=== PATIENT | female | born 1975 | race Caucasian/White ===

== ENCOUNTER 2018-08-05 15:30 | Emergency (ER) | payer MEDICAID, MEDICARE ==
[2018-08-05] MEDS ORDERED: Iopamidol 755 Mg/ML 100 ML Bottle IVPUSH ONE (17:33)
[2018-08-05] MEDS ORDERED: Sodium Chloride 0.9% 100 ML IV SCH (17:45)
--- NOTE | 2018-08-05 17:49 | EDM.PDOC ---
ED HPI GENERAL MEDICAL PROBLEM - General Chief Complaint: Respiratory Problem Stated Complaint: HIGH BLOOD PRESSURE,NOT SLEEPING Time Seen by Provider: 08/05/18 15:51 Source of Information: Reports: Patient History Limitations: Reports: No Limitations - History of Present Illness INITIAL COMMENTS - FREE TEXT/NARRATIVE: The patient presents with generalized weakness, being tired and shortness of breath. She says this has been going on for a few weeks. She is falling asleep during the day and even when talking. She is also not sleeping good at night. She has no fever, chills or cough. She has no chest pain but she is short of breath. She has no abdominal pain, nausea or vomiting. She has no dysuria or hematuria. She is very tired. She has never been checked for thyroid problems. She does snore at night. Her blood pressure has been higher. Onset: Gradual Duration: Week(s): Severity: Moderate Improves with: Reports: None Worsens with: Reports: None Associated Symptoms: Reports: Shortness of Breath. Denies: Chest Pain, Cough, Fever/Chills, Headaches - Related Data Allergies Allergy/AdvReac Type Severity Reaction Status Date / Time No Known Allergies Allergy Verified 08/05/18 15:51 Home Meds: Home Meds . [No Known Home Meds] 08/05/18 [History] Past Medical History Psychiatric History: Reports: Anxiety, Depression - Past Surgical History GI Surgical History: Reports: Cholecystectomy Social & Family History - Tobacco Use Smoking Status *Q: Never Smoker - Recreational Drug Use Recreational Drug Use: No ED ROS GENERAL - Review of Systems Review Of Systems: See Below Constitutional: Reports: Malaise, Weakness, Fatigue HEENT: Reports: No Symptoms Respiratory: Reports: Shortness of Breath. Denies: Cough Cardiovascular: Reports: No Symptoms Endocrine: Reports: No Symptoms GI/Abdominal: Reports: No Symptoms : Reports: No Symptoms Musculoskeletal: Reports: No Symptoms ED EXAM, GENERAL - Physical Exam Exam: See Below Exam Limited By: No Limitations General Appearance: Alert, No Apparent Distress Ears: Normal External Exam Nose: Normal Inspection Head: Atraumatic, Normocephalic Neck: Normal Inspection Respiratory/Chest: No Respiratory Distress, Lungs Clear, Normal Breath Sounds Cardiovascular: Regular Rate, Rhythm, No Edema, No Murmur GI/Abdominal: Soft, Non-Tender, No Organomegaly, No Mass Back Exam: Normal Inspection Extremities: Normal Inspection EKG INTERPRETATION EKG Date: 08/05/18 Time: 16:45 Rhythm: NSR Rate (Beats/Min): 80 [place]: Normal P-Wave: Present QRS: Normal ST-T: Normal QT: Normal Course - Vital Signs Last Recorded V/S: Last Vital Signs Temp 98.7 F 08/05/18 15:48 Pulse 80 08/05/18 15:48 Resp 16 08/05/18 15:48 BP 141/83 H 08/05/18 15:48 Pulse Ox 97 08/05/18 15:48 - Orders/Labs/Meds Orders: Active Orders 24 hr Category Date Time Status Cardiac Monitoring [RC] . DIRECTED Care 08/05/18 16:14 Active EKG Documentation Completion [RC] STAT Care 08/05/18 16:14 Active Ang Chest [CT] Stat Exams 08/05/18 17:25 Taken CXR [Chest 2V] [CR] Stat Exams 08/05/18 16:15 Taken Sodium Chloride 0.9% [Normal Saline] 100 ml Med 08/05/18 17:45 Active IV ASDIRECTED Medication Orders Sodium Chloride (Normal Saline) 100 mls @ 75 mls/hr IV ASDIRECTED JEOVANY Last Admin: 08/05/18 17:48 Dose: 75 mls/hr Labs: Laboratory Tests 08/05/18 08/05/18 08/05/18 Range/Units 16:30 16:30 16:30 WBC 12.02 H (3.98-10.04) K/mm3 RBC 4.80 (3.98-5.22) M/mm3 Hgb 14.3 (11.2-15.7) gm/L Hct 43.6 (34.1-44.9) % MCV 90.8 (79.4-94.8) fl MCH 29.8 (25.6-32.2) pg MCHC 32.8 (32.2-35.5) g/dl RDW Std Deviation 44.8 (36.4-46.3) fL Plt Count 444 H (182-369) K/mm3 MPV 9.7 (9.4-12.3) fl Neut % (Auto) 72.5 H (34.0-71.1) % Lymph % (Auto) 18.6 L (19.3-51.7) % [place] % (Auto) 5.6 (4.7-12.5) % Eos % (Auto) 3.0 (0.7-5.8) Baso % (Auto) 0.2 (0.1-1.2) % Neut # (Auto) 8.71 H (1.56-6.13) K/mm3 Lymph # (Auto) 2.24 (1.18-3.74) K/mm3 [place] # (Auto) 0.67 H (0.24-0.36) K/mm3 Eos # (Auto) 0.36 (0.04-0.36) K/mm3 Baso # (Auto) 0.03 (0.01-0.08) K/mm3 D-Dimer, Quantitative 0.83 H (0.19-0.50) mg/L Sodium 139 (136-145) mEq/L Potassium 3.9 (3.5-5.1) mEq/L Chloride 105 (98-107) mEq/L Carbon Dioxide 23 (21-32) mEq/L Anion Gap 14.9 (5-15) BUN 9 (7-18) mg/dL Creatinine 0.8 (0.55-1.02) mg/dL Est Cr Clr Drug Dosing 86.36 mL/min Estimated GFR (MDRD) > 60 (>60) mL/min BUN/Creatinine Ratio 11.3 L (14-18) Glucose 94 (74-106) mg/dL Calcium 9.0 (8.5-10.1) mg/dL Total Bilirubin 0.3 (0.2-1.0) mg/dL AST 14 L (15-37) U/L ALT 28 (14-59) U/L Alkaline Phosphatase 86 (46-116) U/L Troponin I < 0.017 (0.00-0.056) ng/mL Total Protein 7.3 (6.4-8.2) g/dl Albumin 3.6 (3.4-5.0) g/dl Globulin 3.7 gm/dL Albumin/Globulin Ratio 1.0 (1-2) TSH 3rd Generation 2.580 (0.358-3.74) uIU/mL HCG, Qual (NEGATIVE) Urine Color (Yellow) Urine Appearance (Clear) Urine pH (5.0-8.0) Ur Specific [place] (1.005-1.030) Urine Protein (Negative) Urine Glucose (UA) (Negative) Urine Ketones (Negative) Urine Occult Blood (Negative) Urine Nitrite (Negative) Urine Bilirubin (Negative) Urine Urobilinogen (0.2-1.0) Ur Leukocyte Esterase (Negative) Urine RBC (0-5) /hpf Urine WBC (0-5) /hpf Ur Squamous Epith Cells (0-5) /hpf Urine Bacteria (FEW) /hpf Urine Mucus (FEW) /hpf 08/05/18 08/05/18 Range/Units 16:30 16:30 WBC (3.98-10.04) K/mm3 RBC (3.98-5.22) M/mm3 Hgb (11.2-15.7) gm/L Hct (34.1-44.9) % MCV (79.4-94.8) fl MCH (25.6-32.2) pg MCHC (32.2-35.5) g/dl RDW Std Deviation (36.4-46.3) fL Plt Count (182-369) K/mm3 MPV (9.4-12.3) fl Neut % (Auto) (34.0-71.1) % Lymph % (Auto) (19.3-51.7) % [place] % (Auto) (4.7-12.5) % Eos % (Auto) (0.7-5.8) Baso % (Auto) (0.1-1.2) % Neut # (Auto) (1.56-6.13) K/mm3 Lymph # (Auto) (1.18-3.74) K/mm3 [place] # (Auto) (0.24-0.36) K/mm3 Eos # (Auto) (0.04-0.36) K/mm3 Baso # (Auto) (0.01-0.08) K/mm3 D-Dimer, Quantitative (0.19-0.50) mg/L Sodium (136-145) mEq/L Potassium (3.5-5.1) mEq/L Chloride (98-107) mEq/L Carbon Dioxide (21-32) mEq/L Anion Gap (5-15) BUN (7-18) mg/dL Creatinine (0.55-1.02) mg/dL Est Cr Clr Drug Dosing mL/min Estimated GFR (MDRD) (>60) mL/min BUN/Creatinine Ratio (14-18) Glucose (74-106) mg/dL Calcium (8.5-10.1) mg/dL Total Bilirubin (0.2-1.0) mg/dL AST (15-37) U/L ALT (14-59) U/L Alkaline Phosphatase (46-116) U/L Troponin I (0.00-0.056) ng/mL Total Protein (6.4-8.2) g/dl Albumin (3.4-5.0) g/dl Globulin gm/dL Albumin/Globulin Ratio (1-2) TSH 3rd Generation (0.358-3.74) uIU/mL HCG, Qual Negative (NEGATIVE) Urine Color Yellow (Yellow) Urine Appearance Slt cloudy H (Clear) Urine pH 6.0 (5.0-8.0) Ur Specific [place] 1.020 (1.005-1.030) Urine Protein Negative (Negative) Urine Glucose (UA) Negative (Negative) Urine Ketones Negative (Negative) Urine Occult Blood 3+ H (Negative) Urine Nitrite Negative (Negative) Urine Bilirubin Negative (Negative) Urine Urobilinogen 0.2 (0.2-1.0) Ur Leukocyte Esterase Negative (Negative) Urine RBC 5-10 H (0-5) /hpf Urine WBC 0-5 (0-5) /hpf Ur Squamous Epith Cells 0-5 (0-5) /hpf Urine Bacteria Few (FEW) /hpf Urine Mucus Few (FEW) /hpf Meds: Medications Generic Name Dose Route Start Last Admin Trade Name Freq PRN Reason Stop Dose Admin Sodium Chloride 100 mls @ 75 mls/hr 08/05/18 17:45 08/05/18 17:48 Normal Saline IV 75 mls/hr ASDIRECTED JEOVANY Administration Discontinued Medications Generic Name Dose Route Start Last Admin Trade Name Freq PRN Reason Stop Dose Admin Iopamidol 100 ml 08/05/18 17:33 08/05/18 17:48 Isovue-370 (76%) IVPUSH 08/05/18 17:34 100 ml ONETIME ONE Administration - Re-Assessments/Exams Free Text/Narrative Re-Assessment/Exam: 08/05/18 17:49 I ordered an EKG, CXR, labs and UA. Her EKG shows a NSR with no acute changes. Her WBC was elevated slightly at 12.02. Her CMP is normal. Her troponin was negative. Her TSH was normal. Her HCG was negative. Her UA shows no UTI. Her D-dimer was elevated. I have ordered a CT of her chest. 08/05/18 18:[address] shows no central acute pulmonary embolus. Examination is technically limited. Possible right breast lesion. Neoplasm should be excluded. Correlation with most recent mammogram is advised. Further interrogation with mammogram and or ultrasound is also advised. Suspected 3cm lesion right hepatic lobe. If there is a primary breast malignancy, a metastatic focus would be primary consideration. Mild enlargement of main pulmonary artery. Pulmonary arterial hypertension could be considered in the appropriate clinical setting. Nonspecific subcentimeter pulmonary nodules in the left upper lobe. I talked to the patient and she was told that area in the breast is nothing to worry about. I feel I still need to order a mammogran and US. Departure - Departure Time of Disposition: 18:50 Disposition: Home, Self-Care 01 Condition: Good Clinical Impression: Breast mass, Shortness of breath Fatigue Qualifiers: Fatigue type: unspecified Qualified Code(s): R53.83 - Other fatigue - Discharge Information *PRESCRIPTION DRUG MONITORING PROGRAM REVIEWED*: Not Applicable *COPY OF PRESCRIPTION DRUG MONITORING REPORT IN PATIENT [place]: Not Applicable Referrals: PCP,None [Primary Care Provider] - Amber Sprague NP [Ordering Only Provider] - 2 Weeks Forms: ED Department Discharge Additional Instructions: I have ordered some studies for the mass in your breast. Our radiology department will call you with a time to come in. Follow up with Amber after. Please return if you are worse. - My Orders Last 24 Hours: My Active Orders 08/05/18 16:14 Cardiac Monitoring [RC] . DIRECTED EKG Documentation Completion [RC] STAT 08/05/18 16:15 CXR [Chest 2V] [CR] Stat 08/05/18 17:25 Ang Chest [CT] Stat 08/05/18 17:45 Sodium Chloride 0.9% [Normal Saline] 100 ml IV ASDIRECTED - Assessment/Plan Last 24 Hours: My Active Orders 08/05/18 16:14 Cardiac Monitoring [RC] . DIRECTED EKG Documentation Completion [RC] STAT 08/05/18 16:15 CXR [Chest 2V] [CR] Stat 08/05/18 17:25 Ang Chest [CT] Stat 08/05/18 17:45 Sodium Chloride 0.9% [Normal Saline] 100 ml IV ASDIRECTED
--- NOTE | 2018-08-08 10:42 | CT ---
CT chest Technique: Multiple axial sections were obtained from above the lung apices inferiorly through the lung bases. Intravenous contrast was utilized. Study performed as a pulmonary angiogram protocol. Comparison: Prior chest x-ray performed earlier on the same day (4:19 PM.) Findings: Very minimal left-sided pleural effusion is seen. Pulmonary arteries are moderately well opacified showing no filling defects to indicate pulmonary embolism. Main pulmonary artery is slightly prominent in size with right and left main pulmonary arteries appearing within normal limits. Questionable breast density is noted on the right side measuring 2.6 cm. Uncertain if this is due to focal fibrous tissue or represents actual breast mass. Mediastinum and hilar regions appear unremarkable. No pericardial thickening is seen. Small hiatal hernia is noted. Surgical clips are seen from prior cholecystectomy. Small subpleural nodule is noted within the left upper chest measuring 6 mm. Second small subpleural nodule is noted within the lingula measuring 3 mm. Minimal nodular pleural thickening is seen along the lateral left chest. Lungs otherwise are clear. Bone window settings show no discrete osseous abnormality. Equivocal low density lesion is seen within the right lobe of the liver measuring approximately 3.0 cm. Impression: 1. Right breast density either representing focal fibrous tissue or actual breast mass. This measures about 2.6 cm in size. Tomosynthesis is recommended to further evaluate. Determination for ultrasound will be based on the tomosynthesis. 2. Questionable lesion within right lobe of the liver measuring 3.0 cm. Ultrasound recommended to further evaluate. 3. Several small subpleural nodules within the left chest, recommend repeat noncontrast chest CT study in 6 months to further evaluate. This follow-up study would occur in January,. 4. Slightly prominent main pulmonary artery which I believe is incidental if patient has no cardiac symptoms. 5. Very small left-sided pleural effusion. 6. No findings of pulmonary embolism. Diagnostic code #9 I agree with preliminary report from [facility], finalized on 08/05/18, 7:13 PM Central Time
--- NOTE | 2018-08-08 11:48 | CR ---
Chest: Two views of the chest were obtained. Comparison: No prior chest x-ray. Heart size and mediastinum are within normal limits. Lungs are clear. Bony structures appear within normal limits for the patient's age. Impression: 1. Nothing acute is seen on two-view chest x-ray. Diagnostic code #1
== END 2018-08-05 19:05 | disposition home or self-care (01) ==
LOC: JD.ED 15:30
DX: N63.10 Unspecified lump in the right breast, unspecified quadrant (principal); R06.02 Shortness of breath; R79.1 Abnormal coagulation profile; R53.83 Other fatigue
CPT/HCPCS: 36415; 71046; 71275; 80053; 81001; 84443; 84484; 84703; 85025; 85379; 93005; 99284; J7030; Q9967

== ENCOUNTER 2019-05-04 10:50 | Emergency (ER) | payer SELFPAY ==
--- NOTE | 2019-05-04 11:39 | EDM.PDOC ---
ED HPI GENERAL MEDICAL PROBLEM - General Chief Complaint: Respiratory Problem Stated Complaint: SENT BY DR AFTER CHEST X-RAY Time Seen by Provider: 05/04/19 11:43 Source of Information: Reports: Patient History Limitations: Reports: No Limitations - History of Present Illness INITIAL COMMENTS - FREE TEXT/NARRATIVE: 44-year-old female presents to the ED at the request of her primary care physician who identified a large left-sided pleural effusion on chest x-ray this morning. Patient has a remote history of breast cancer in the right breast diagnosed in September 2018 for which no therapy was provided because the patient could not make up her mind about having further investigations versus imaging studies done and definitive management such as mastectomy lumpectomy chemotherapy or radiotherapy. Essentially she has done nothing about the diagnosis since 2019. She presents with gradually worsening dyspnea shortness of breath pleuritic chest pain on the left side which finally made her go to the doctor today. She is dyspneic on minimal exertion. She feels full in her left upper hemiabdomen. Denies really any cough or sputum production. X-ray sent over from the clinic shows at least 50% left-sided pleural effusion. Is no doubt going to be malignant secondary to breast cancer. Reports no weight loss but her appetite is not the best. Does feel like her abdomen is slightly bloated as well. Onset: Gradual, Unknown/Unsure (Believes that she is developed gradually shortness of breath over the last 6 to 8 weeks) Duration: Week(s):, Chronic, Getting Worse Location: Reports: Chest (Shortness of breath on exertion and left-sided chest pain discomfort some pleuritic component to the pain) Quality: Reports: Other Severity: Moderate ([place] left-sided chest pain) Improves with: Reports: Rest Worsens with: Reports: Movement (Worsens with exertion or walking.) Context: Denies: Activity, Exercise, Lifting, Sick Contact, Trauma, Other Associated Symptoms: Reports: Loss of Appetite, Malaise, Shortness of Breath, Weakness. Denies: No Other Symptoms, Confusion, Chest Pain, Cough, cough w sputum, Diaphoresis, Fever/Chills, Headaches, Rash, Seizure, Syncope Treatments STRAP CUTTER: Reports: Other (see below) (Noticed that she is not as strong as she used to be.) Headache Pain Score (Numeric/FACES): 5 - Related Data Allergies Allergy/AdvReac Type Severity Reaction Status Date / Time No Known Allergies Allergy Verified 05/04/19 11:06 Home Meds: Home Meds . [No Known Home Meds] 08/05/18 [History] Past Medical History SPECIAL PROJECTS COORDINATOR History: Reports: Other (See Below) Other SPECIAL PROJECTS COORDINATOR History: tubal ligation Psychiatric History: Reports: Anxiety, Depression Oncologic (Cancer) History: Reports: Breast (Noticed with left breast cancer by biopsy by Dr. Rodas in September 2018. She never followed up for MRI of the breast or any other investigations with oncology at [facility].) - Past Surgical History GI Surgical History: Reports: Cholecystectomy Social & Family History - Tobacco Use Smoking Status *Q: Former Smoker Used Tobacco, but Quit: Yes Month/Year Tobacco Last Used: 2009 - Caffeine Use Caffeine Use: Reports: None - Recreational Drug Use Recreational Drug Use: No - Living Situation & Occupation Living situation: Reports: Occupation: Employed ED ROS GENERAL - Review of Systems Review Of Systems: See Below Constitutional: Reports: Malaise, Weakness, Fatigue, Decreased Appetite. Denies : Fever, Chills HEENT: Reports: No Symptoms Respiratory: Reports: Shortness of Breath, Pleuritic Chest Pain. Denies: Wheezing, Cough (Left-sided pleuritic chest pain at times), Sputum, Hemoptysis Cardiovascular: Reports: Chest Pain, Dyspnea on Exertion. Denies: Blood Pressure Problem (Some left-sided chest pressure discomfort at times), Claudication, Edema, Lightheadedness, Orthopnea Endocrine: Reports: Fatigue GI/Abdominal: Reports: Abdominal Pain (Pressure in the epigastrium and left upper quadrant of the abdomen at times. Feels early satiety.), Constipation ( Takes herbal laxatives) : Reports: No Symptoms, Other (In the case that she is menstruating fairly regularly but that the cramps are getting worse as she is getting older.) Musculoskeletal: Reports: Back Pain (Pain in her thoracic back.) Skin: Reports: No Symptoms Neurological: Reports: No Symptoms Psychiatric: Reports: No Symptoms Hematologic/Lymphatic: Reports: No Symptoms Immunologic: Reports: No Symptoms ED EXAM, GENERAL - Physical Exam Exam: See Below Exam Limited By: No Limitations General Appearance: Alert, WD/WN, No Apparent Distress, Other (Essential temperature 36.2 pulse is 84 and sinus respiratory is 20 with O2 sats of only 93 % on room air BP is 109/80) Eye Exam: Bilateral Eye: Normal Inspection Ears: Normal TMs Throat/Mouth: Normal Inspection, Normal Lips, Normal Teeth, Normal Oropharynx Head: Normocephalic, Sinus Tenderness Neck: Normal Inspection, Supple, Non-Tender, Full Range of Motion. No: Lymphadenopathy (L), Lymphadenopathy (R) Respiratory/Chest: Chest Non-Tender, Respiratory Distress, Decreased Breath Sounds (No tachypnea is to percussion to the lower 50% of left lung sotelo with no air entry to the lower 50%. Normal air entry to the right lung field), Other (Clinically has a large left-sided pleural effusion). No: Lungs Clear, Normal Breath Sounds Cardiovascular: Normal Peripheral Pulses, Regular Rate, Rhythm, No Edema, No Gallop, No Murmur, No Rub Peripheral Pulses: 3+: Posterior Tibial (L), Posterior Tibial (R), Dorsalis Pedis (L), Dorsalis Pedis (R) GI/Abdominal: Normal Bowel Sounds, Soft, Non-Tender, No Organomegaly, No Abnormal Bruit, No Mass, Pelvis Stable, Other (Lars obese. She is missing her gallbladder) Back Exam: Normal Inspection, Full Range of Motion, Other (Not identify any point tenderness of any of the spinous processes of her thoracic spine). No: CVA Tenderness (L), CVA Tenderness (R) Extremities: Normal Inspection, Normal Range of Motion, Non-Tender, No Pedal Edema Neurological: Alert, Oriented, Normal Cognition, Normal Gait Psychiatric: Normal Affect, Normal Mood Skin Exam: Warm, Dry, Intact, Normal Color, No Rash Lymphatic: Other (Has a firm indurated mass in the upper outer quadrant of her right breast measuring 5 cm x 3 cm and it is still mobile. It is mildly tender. Apparently this was diagnosed as a breast cancer by biopsy in September 2018. She does appear to have anterior axillary adenopathy as well on the left side. No supraclavicular adenopathy noted) EKG INTERPRETATION EKG Date: 05/04/19 Time: 11:51 Rhythm: NSR Rate (Beats/Min): 84 [place]: Normal P-Wave: Present QRS: Normal ST-T: Normal QT: Normal EKG Interpretation Comments: Essentially normal ECG Course - Vital Signs Last Recorded V/S: Last Vital Signs Temp 36.2 C 05/04/19 11:03 Pulse 84 05/04/19 11:03 Resp 20 05/04/19 11:03 BP 109/80 05/04/19 11:03 Pulse Ox 93 L 05/04/19 11:03 - Orders/Labs/Meds Orders: Active Orders 24 hr Category Date Time Status EKG Documentation Completion [RC] STAT Care 05/04/19 11:46 Active Dextrose 5%-0.9% NaCl [Dextrose 5%-Normal Saline] 1,000 Med 05/04/19 12:00 Active ml IV ASDIRECTED Sodium Chloride 0.9% [Saline Flush] Med 05/04/19 12:29 Active 10 ml FLUSH ONETIME PRN Medication Orders Dextrose/Sodium Chloride (Dextrose 5%-Normal Saline) 1,000 mls @ 125 mls/hr IV ASDIRECTED JEOVANY Last Admin: 05/04/19 12:22 Dose: 125 mls/hr Sodium Chloride (Saline Flush) 10 ml FLUSH ONETIME PRN PRN Reason: IV FLUSH Last Admin: 05/04/19 12:50 Dose: 10 ml Labs: Laboratory Tests 05/04/19 05/04/19 05/04/19 Range/Units 12:25 12:25 12:25 WBC 7.28 (3.98-10.04) K/mm3 RBC 4.84 (3.98-5.22) M/mm3 Hgb 14.1 (11.2-15.7) gm/dl Hct 43.1 (34.1-44.9) % MCV 89.0 (79.4-94.8) fl MCH 29.1 (25.6-32.2) pg MCHC 32.7 (32.2-35.5) g/dl RDW Std Deviation 44.7 (36.4-46.3) fL Plt Count 349 D (182-369) K/mm3 MPV 8.8 L (9.4-12.3) fl Neut % (Auto) 44.2 (34.0-71.1) % Lymph % (Auto) 42.2 (19.3-51.7) % [place] % (Auto) 9.9 (4.7-12.5) % Eos % (Auto) 2.6 (0.7-5.8) Baso % (Auto) 0.8 (0.1-1.2) % Neut # (Auto) 3.22 (1.56-6.13) K/mm3 Lymph # (Auto) 3.07 (1.18-3.74) K/mm3 [place] # (Auto) 0.72 H (0.24-0.36) K/mm3 Eos # (Auto) 0.19 (0.04-0.36) K/mm3 Baso # (Auto) 0.06 (0.01-0.08) K/mm3 PT 10.3 (9.7-12.0) SECONDS INR 0.94 APTT 26 (22-31) SECONDS Sodium 140 (136-145) mEq/L Potassium 4.1 (3.5-5.1) mEq/L Chloride 105 (98-107) mEq/L Carbon Dioxide 27 (21-32) mEq/L Anion Gap 12.1 (5-15) BUN 15 (7-18) mg/dL Creatinine 0.7 (0.55-1.02) mg/dL Est Cr Clr Drug Dosing 97.65 mL/min Estimated GFR (MDRD) > 60 (>60) mL/min BUN/Creatinine Ratio 21.4 H (14-18) Glucose 104 (74-106) mg/dL Calcium 8.8 (8.5-10.1) mg/dL Magnesium 2.2 (1.8-2.4) mg/dl Total Bilirubin 0.6 (0.2-1.0) mg/dL AST 39 H (15-37) U/L ALT 89 H (14-59) U/L Alkaline Phosphatase 88 (46-116) U/L C-Reactive Protein 1.3 H* (<1.0) mg/dL NT-Pro-B Natriuret Pep (0-125) pg/mL Total Protein 7.0 (6.4-8.2) g/dl Albumin 3.6 (3.4-5.0) g/dl Globulin 3.4 gm/dL Albumin/Globulin Ratio 1.1 (1-2) Urine Color (Yellow) Urine Appearance (Clear) Urine pH (5.0-8.0) Ur Specific [place] (1.005-1.030) Urine Protein (Negative) Urine Glucose (UA) (Negative) Urine Ketones (Negative) Urine Occult Blood (Negative) Urine Nitrite (Negative) Urine Bilirubin (Negative) Urine Urobilinogen (0.2-1.0) Ur Leukocyte Esterase (Negative) Urine RBC (0-5) /hpf Urine WBC (0-5) /hpf Ur Squamous Epith Cells (0-5) /hpf Urine Bacteria (FEW) /hpf Urine Mucus (FEW) /hpf 05/04/19 05/04/19 Range/Units 12:25 13:01 WBC (3.98-10.04) K/mm3 RBC (3.98-5.22) M/mm3 Hgb (11.2-15.7) gm/dl Hct (34.1-44.9) % MCV (79.4-94.8) fl MCH (25.6-32.2) pg MCHC (32.2-35.5) g/dl RDW Std Deviation (36.4-46.3) fL Plt Count (182-369) K/mm3 MPV (9.4-12.3) fl Neut % (Auto) (34.0-71.1) % Lymph % (Auto) (19.3-51.7) % [place] % (Auto) (4.7-12.5) % Eos % (Auto) (0.7-5.8) Baso % (Auto) (0.1-1.2) % Neut # (Auto) (1.56-6.13) K/mm3 Lymph # (Auto) (1.18-3.74) K/mm3 [place] # (Auto) (0.24-0.36) K/mm3 Eos # (Auto) (0.04-0.36) K/mm3 Baso # (Auto) (0.01-0.08) K/mm3 PT (9.7-12.0) SECONDS INR APTT (22-31) SECONDS Sodium (136-145) mEq/L Potassium (3.5-5.1) mEq/L Chloride (98-107) mEq/L Carbon Dioxide (21-32) mEq/L Anion Gap (5-15) BUN (7-18) mg/dL Creatinine (0.55-1.02) mg/dL Est Cr Clr Drug Dosing mL/min Estimated GFR (MDRD) (>60) mL/min BUN/Creatinine Ratio (14-18) Glucose (74-106) mg/dL Calcium (8.5-10.1) mg/dL Magnesium (1.8-2.4) mg/dl Total Bilirubin (0.2-1.0) mg/dL AST (15-37) U/L ALT (14-59) U/L Alkaline Phosphatase (46-116) U/L C-Reactive Protein (<1.0) mg/dL NT-Pro-B Natriuret Pep 34 (0-125) pg/mL Total Protein (6.4-8.2) g/dl Albumin (3.4-5.0) g/dl Globulin gm/dL Albumin/Globulin Ratio (1-2) Urine Color Yellow (Yellow) Urine Appearance Clear (Clear) Urine pH 6.0 (5.0-8.0) Ur Specific [place] 1.025 (1.005-1.030) Urine Protein Negative (Negative) Urine Glucose (UA) Negative (Negative) Urine Ketones Negative (Negative) Urine Occult Blood Negative (Negative) Urine Nitrite Negative (Negative) Urine Bilirubin Negative (Negative) Urine Urobilinogen 0.2 (0.2-1.0) Ur Leukocyte Esterase Negative (Negative) Urine RBC 0-5 (0-5) /hpf Urine WBC 0-5 (0-5) /hpf Ur Squamous Epith Cells 0-5 (0-5) /hpf Urine Bacteria Moderate H (FEW) /hpf Urine Mucus Few (FEW) /hpf Meds: Medications Generic Name Dose Route Start Last Admin Trade Name Shilpa PRN Reason Stop Dose Admin Dextrose/Sodium Chloride 1,000 mls @ 125 mls/hr 05/04/19 12:00 05/04/19 12:22 Dextrose 5%-Normal Saline IV 125 mls/hr ASDIRECTED JEOVANY Administration Sodium Chloride 10 ml 05/04/19 12:29 05/04/19 12:50 Saline Flush FLUSH 10 ml ONETIME PRN Administration IV FLUSH Discontinued Medications Generic Name Dose Route Start Last Admin Trade Name Freq PRN Reason Stop Dose Admin Iopamidol 25 ml 05/04/19 12:29 05/04/19 12:49 Isovue-300 (61%) IVPUSH 05/04/19 12:30 50 ml ONETIME ONE Administration Iopamidol 100 ml 05/04/19 12:29 05/04/19 12:49 Isovue-300 (61%) IVPUSH 05/04/19 12:30 100 ml ONETIME ONE Administration - Radiology Interpretation Free Text/Narrative:: 44-year-old female presents to the ED at the request of her primary care physician who seen her for the first time this morning. She was complaining of gradually worsening dyspnea over period of 6 weeks. She has a history of left- sided breast cancer diagnosed 2019 by biopsy for which she did not pursue any further investigations or treatment. It is unclear why this occurred. At any rate she was identified to have a very large left-sided pleural effusion this morning on the left side taking up 50% of the lung field. This is the reason for dyspnea and left-sided chest pain and is no related to the underlying breast cancer with likely metastatic spread to the pleura. I will have routine labs carried out as they only did a CBC at the clinic. If her coags are okay and liver function are okay she will have CT of the chest abdomen pelvis to look for metastatic disease in her liver. Will be done for IV contrast only . - Re-Assessments/Exams Free Text/Narrative Re-Assessment/Exam: 05/04/19 13:30 CT of the chest abdomen pelvis with IV contrast has been completed. It does reveal a definitive mass which is palpable within the right breast. In the chest there is a very large left-sided pleural effusion I suspect there are multiple mediastinal lymph nodes as well. The right lung is clear. In the abdomen there is a cystic lesion in the mid body of the right lobe of the liver but there appears to be an abnormality in the inferior lobe of the right liver which is of unclear etiology. Adrenal glands are within normal limits. Pancreas appears normal spleen appears normal there is scattered amount of stool throughout the colon. No free fluid in the pelvis. I will await the radiologist opinion in this regard.Count is 7.28 with 44.2% neutrophils and 42% lymphocytes. A mild right shift hemoglobin is 14.1 with hematocrit of 43.1. MCV is normal platelet count is 349,000 PT is 10.3 with an INR of 0.94 and a PTT of 26. Sodium is 140 with a potassium of 4.1. Chloride is 105 with a bicarb of 27. Anion gap is 12.1 with a BUN of 15. Creatinine is 0.7 GFR remains greater than 60. Glucose is 104 with a calcium of 8.8 magnesium is 2.2 with a bilirubin of 0.6. AST is slightly elevated at 39 and ALT is slightly elevated at 89. Alk phosphatase is 88. C-reactive protein is 1.3 BNP is 34 total protein 7.0 with an albumin fraction of 3.6. Urinalysis shows only moderate bacteria with no signs of pyuria. 05/04/19 14:39 CT of the chest reveals a focal nodule within the right breast which is showing some degrees of spiculation suggesting malignancy. Size is also slightly increased in size by about 5 to 6 mm. There is an enlarged left lobe of the thyroid gland containing a nodule. This is most likely present on prior exam but shows artifact which obscures portions of it. There is a very large left-sided pleural effusion which is quite evident. Small portion of the upper lung remains aerated. Small nodule is noted adjacent to the pleura within the right lung base. This is identified on prior study and is believed to be stable although interval changes not sufficient to confirm a benign lesion. Additional nodules noted within the right upper lung which is not seen on previous exam and measures about 3 mm. Low-density lesion noted within the inferior right lobe of the liver which is vaguely seen on prior study these finding measures approximately 3.5 cm in size there is a second lesion noted more superiorly within the right lobe of the liver which also appears solid measuring 1.3 cm in size and again is an interval change from previous exam. Suggest that she likely has metastatic disease above and below the liver. Spleen appears to be within normal limits adrenal glands show no nodules kidneys show symmetric contrast enhancement without hydronephrosis or mass pancreas is seen within normal limits surgical clips are seen from. Prior cholecystectomy aorta shows no aneurysm. No retroperitoneal adenopathy or mesenteric abnormalities are seen. No pelvic mass or adenopathy is noted. Cyst is noted within the right ovary measuring 3.9 cm. No additional pelvic abnormalities are noted. Appendix is seen and is normal in size. No free fluid or inflammatory changes seen. There is a nodule noted off the anterior spleen believed to represent an accessory splenic tissue. Bone window settings were reviewed which shows severe disc degeneration at L5-S1 level with mild spondylolisthesis. Severe degenerative apophyseal changes seen at the same level. Bone lesion is noted within the inferior acetabulum on the left side this could represent a bony metastatic lesion measuring 2.6 cm in size a second lytic lesion is seen within the right iliac wing measuring 2.0 cm which is likely due to additional bone metastatic disease several vague small areas are scattered within the lumbar spine possibly due to very early metastatic disease. 05/04/19 15:00: After speaking with the patient's brother and herself to help her make decisions she is made a decision to travel to [place] where she could have the large pleural effusion tapped and then also seek oncology opinion and opt for a treatment or not. Therefore discuss her case with the on-call hospitalist at [facility] in [place]. She would travel to that institution by ground ambulance. 05/04/19 15:44 I spoke with the 1 call nurse at [facility] and [facility] and Dr. Walsh hospitalist on-call and he is accepted care of this patient. Be transferred to that facility per ground ambulance. Departure - Departure Time of Disposition: 15:46 Disposition: DC/Tfer to [facility] Condition: Fair Clinical Impression: Primary cancer of right breast with metastasis to other site, Widespread metastatic malignant neoplastic disease, Shortness of breath - Discharge Information *PRESCRIPTION DRUG MONITORING PROGRAM REVIEWED*: Not Applicable *COPY OF PRESCRIPTION DRUG MONITORING REPORT IN PATIENT ROYER: Not Applicable Referrals: Amber Sprague NP [Primary Care Provider] - Forms: ED Department Discharge Additional Instructions: She will be transferred to [facility] in [place] for 2 reasons. 1 she will require thoracostomy drainage of her large left-sided pleural effusion which is most likely metastatic in origin. She also requires oncology consultation for primary right-sided breast carcinoma with widespread metastatic disease on CT. Sepsis Event Note - Evaluation Sepsis Screening Result: No Definite Risk - Focused Exam Vital Signs: Vital Signs Temp Pulse Resp BP Pulse Ox 05/04/19 11:03 36.2 C 84 20 109/80 93 L Date Exam was Performed: 05/04/19 Time Exam was Performed: 16:15 - My Orders Last 24 Hours: My Active Orders 05/04/19 11:46 EKG Documentation Completion [RC] STAT 05/04/19 12:00 Dextrose 5%-0.9% NaCl [Dextrose 5%-Normal Saline] 1,000 ml IV ASDIRECTED 05/04/19 12:29 Sodium Chloride 0.9% [Saline Flush] 10 ml FLUSH ONETIME PRN - Assessment/Plan Last 24 Hours: My Active Orders 05/04/19 11:46 EKG Documentation Completion [RC] STAT 05/04/19 12:00 Dextrose 5%-0.9% NaCl [Dextrose 5%-Normal Saline] 1,000 ml IV ASDIRECTED 05/04/19 12:29 Sodium Chloride 0.9% [Saline Flush] 10 ml FLUSH ONETIME PRN
[2019-05-04] MEDS ORDERED: Dextrose 5%-0.9% NaCl 1,000 ML IV SCH (12:00)
[2019-05-04] MEDS ORDERED: Iopamidol 612 MG/ML 100 ML Bottle IVPUSH ONE (12:29)
[2019-05-04] MEDS ORDERED: Sodium Chloride 0.9% 10 ML Syringe FLUSH PRN (12:29)
[2019-05-04] MEDS ORDERED: Iopamidol 612 MG/ML 50 ML SDV IVPUSH ONE (12:29)
--- NOTE | 2019-05-04 13:43 | CT ---
CT chest Technique: Multiple axial sections were obtained from above the lung apices inferiorly through the lung bases. Intravenous contrast was utilized. Comparison: Previous chest CT of 08/05/18. Findings: Focal nodule is noted within the right breast. This is showing some increasing spiculations from prior exam. Size is also slightly increasing in size by about 5-6 mm. These findings make malignancy most likely. Enlarged left lobe of the thyroid gland containing a nodule is seen. This is most likely present on prior exam but shows artifact which obscures portions of it. Large left-sided pleural effusion is seen causing left lung atelectasis. Small portion of the upper lung remains aerated. Small nodule is noted adjacent to the pleura within the right lung base. This is identified on prior study and is believed to be stable although interval change is not sufficient to confirm benign lesion. Additional nodule is noted within the right upper lung which is not seen on previous exam and measures about 3 mm. Low density lesion noted within the inferior right lobe of the liver which is vaguely seen on prior study. This finding measures approximately 3.5 cm. Second lesion noted more superiorly within the right lobe of the liver which also appears solid measuring 1.3 cm in size and is an interval change from previous exam. Impression: 1. Increasing size of right breast mass with increasing spiculation highly suspicious for malignancy. 2. Large left-sided pleural effusion causing significant atelectasis of the left lung. Given the breast abnormality this pleural effusion is most likely malignant. 3. New 3 mm nodule within the right upper lung. Difficult to exclude early metastatic lesion. Small pleural-based nodule more inferiorly within the right lung base which appears stable from prior chest CT but interval change does not confirm a benign nodule. 4. Two liver lesions. More inferior liver lesion is vaguely seen on prior study but more noticeable currently most likely due to worsening liver metastasis. New lesion is seen within the upper right lobe of the liver likely representing liver metastasis. 5. Enlarged left lobe of the thyroid gland showing a nodule. Ultrasound could be obtained to further evaluate. Diagnostic code #9 CT abdomen and pelvis Technique: Multiple axial sections were obtained from above the dome of the diaphragm inferiorly through the pubic symphysis. Intravenous contrast was utilized. No oral contrast has been given. Findings: Two liver lesions are again noted as described on above chest CT. Spleen appears within normal limits. Adrenal glands show no nodule. Kidneys show symmetric contrast enhancement without hydronephrosis or mass. Pancreas is within normal limits. Surgical clips are seen from prior cholecystectomy. Aorta shows no aneurysm. No retroperitoneal adenopathy or mesenteric abnormalities are seen. No pelvic mass or adenopathy is seen. Cyst is noted within the right ovary measuring 3.9 cm. No additional pelvic abnormality is seen. Appendix is seen and is normal in size. No free fluid or inflammatory change is seen. There is a nodule noted off the anterior spleen believed to represent accessory splenic tissue. Bone window settings were reviewed which shows severe disc space narrowing at L5-S1 with mild spondylolisthesis. Severe degenerative apophyseal change is seen at the same level. Bone lesion is noted within the inferior acetabulum on the left side. This could represent a bone metastasis measuring about 2.6 cm in size. Second lytic lesion seen within the right iliac wing measuring 2.0 cm which is likely due to additional bone metastasis. Several vague small areas are scattered within the lumbar spine possibly due to very early metastasis. Impression: 1. Two liver lesions are again noted suspicious for liver metastasis. 2. Two bone lesions within the pelvis suspicious for bone metastasis. Several small areas of lucency scattered within the lumbar spine suspicious but not confirmatory for bone metastasis. 3. 3.9 cm cyst within the right ovary. 4. No additional abnormality is appreciated. Diagnostic code #9 This report was dictated in MDT
== END 2019-05-04 16:20 ==
LOC: JD.ED 10:50
DX: R06.02 Shortness of breath (principal); C50.411 Malignant neoplasm of upper-outer quadrant of right female breast; C79.89 Secondary malignant neoplasm of other specified sites; Z87.891 Personal history of nicotine dependence
CPT/HCPCS: 36415; 71260; 74177; 80053; 81001; 83735; 83880; 85025; 85610; 85730; 86140; 93005; 96360; 96361; 99285; J7042; Q9967; 93010

== ENCOUNTER 2020-02-17 05:11 | Emergency (ER) | payer MEDICAID, SELFPAY ==
[2020-02-17] MEDS ORDERED: HYDROmorphone 1 MG/ML Syringe IVPUSH ONE (05:57)
[2020-02-17] MEDS ORDERED: Ondansetron 4 MG/2 ML SDV IVPUSH ONE (05:57)
[2020-02-17] MEDS ORDERED: Sodium Chloride 0.9% 1,000 ML IV SCH (06:00)
--- NOTE | 2020-02-17 06:01 | EDM.PDOC ---
<Frandy Sanders - Last Filed: 02/17/20 07:31> ED HPI GENERAL MEDICAL PROBLEM - General Chief Complaint: Abdominal Pain Stated Complaint: LEFT ABDOMINAL SIDE EXTREME PAIN Time Seen by Provider: 02/17/20 05:32 Source of Information: Reports: Patient History Limitations: Reports: No Limitations - History of Present Illness INITIAL COMMENTS - FREE TEXT/NARRATIVE: Ms. Antonio is a 44-year-old woman with a past medical history significant for stage IV breast cancer, status post chemotherapy with her most recent dose on September 26 of this year, who now presents to the ED stating that she has had far left abdominal pain, sharp and stabbing in character, since around 23:00 last night. Her pain is made worse if she lies in either the left or right decubitus position, and she is most comfortable if lying supine. No associated fever, dyspnea, nausea, vomiting, constipation, or diarrhea. The patient states that she has had similar symptoms countless times over the past several months, but she is very vague and not able to define how long this has been going on. She states that it started as she was receiving chemotherapy, but also after she finished receiving chemotherapy. He states that her pain is almost always resolved after drinking water, however, drinking water today did not help, wherefore he came to the ED for evaluation. The patient last ate around 19:00 last night. Here in the ED, the patient is found to be hemodynamically stable, afebrile, saturating 97% on room air. Other than her recurrent for left-sided abdominal pain, the patient denies having a recent fever, chills, sore throat, ear pain, nasal or sinus congestion, cough, dyspnea, chest pain, palpitations, nausea, vomiting, constipation, diarrhea, urinary symptoms, recent weight gain or weight loss, recent bloody bowel movements or black bowel movements, recent joint aches, headaches, or rashes. The patient's PCP is Amber Sprague NP. Her Oncologist is Dr. Angelito Parada. Left Middle Abdomen Pain Score (Numeric/FACES): 8 - Related Data Allergies Allergy/AdvReac Type Severity Reaction Status Date / Time No Known Allergies Allergy Verified 02/17/20 05:29 Home Meds: Home Meds Doxycycline [Vibra-Tabs] 100 mg PO Q12HR #20 tab 02/17/20 [Rx] dexAMETHasone [Dexamethasone] 4 mg PO ASDIRECTED #15 tablet 02/17/20 [Rx] oxyCODONE HCl/Acetaminophen [Percocet 5-325 mg Tablet] 1 - 2 each PO Q4H PRN #20 tablet 02/17/20 [Rx] Past Medical History Psychiatric History: Reports: Anxiety (untreated), Depression (untreated) Endocrine/Metabolic History: Reports: Obesity/BMI 30+ Oncologic (Cancer) History: Reports: Breast (right, Stage IV, s/p CTx) - Past Surgical History Respiratory Surgical History: Reports: Pleurodesis (left) GI Surgical History: Reports: Cholecystectomy (around 2016) Female Surgical History: Reports: Tubal Ligation Musculoskeletal Surgical History: Reports: ORIF (right ankle) Social & Family History - Tobacco Use Tobacco Use Status *Q: Former Tobacco User Years of Tobacco use: 24 Packs/Tins Daily: 1 Month/Year Tobacco Last Used: Quit Feb 2009 - Caffeine Use Caffeine Use: Reports: None - Alcohol Use Alcohol Use History: Yes Alcohol Use Frequency: Rarely - Recreational Drug Use Recreational Drug Use: Yes Drug Use in Last 12 Months: No Recreational Drug Type: Reports: Marijuana/Hashish (last smoked "years" ago) - Living Situation & Occupation Living situation: Reports: , with Family (13 yr old son) Occupation: Unemployed ED ROS GENERAL - Review of Systems Review Of Systems: Comprehensive ROS is negative, except as noted in HPI. ED EXAM, GENERAL - Physical Exam Exam: See Below Exam Limited By: No Limitations General Appearance: Alert, WD/WN, Mild Distress (appears uncomfortable) Eye Exam: Bilateral Eye: EOMI, Normal Inspection Ears: Normal External Exam, Hearing Grossly Normal Nose: Normal Inspection Throat/Mouth: Normal Inspection, Normal Lips, Normal Voice, No Airway Compromise Head: Atraumatic, Normocephalic Neck: Normal Inspection, Full Range of Motion Respiratory/Chest: No Respiratory Distress, Lungs Clear, Normal Breath Sounds, No Accessory Muscle Use Cardiovascular: Normal Peripheral Pulses, Regular Rate, Rhythm, No Gallop, No JVD, No Murmur, No Rub Peripheral Pulses: 3+: Radial (L), Radial (R) GI/Abdominal: Normal Bowel Sounds, Soft, No Organomegaly, No Distention, No Abnormal Bruit, No Mass, Tender (mild, to the far left abdomen, with the remainder of the abdomen essentially nontender) Back Exam: Normal Inspection, Full Range of Motion. No: CVA Tenderness (L), CVA Tenderness (R) Extremities: Normal Inspection, Normal Range of Motion, Normal Capillary Refill Neurological: Alert, Oriented, Normal Cognition, No Motor/Sensory Deficits Psychiatric: Normal Affect Skin Exam: Warm, Dry, Intact, Normal Color, No Rash Course - Re-Assessments/Exams Free Text/Narrative Re-Assessment/Exam: 02/17/20 05:58 The cause of the patient's pain is not immediately clear. She has severe pain to her far left abdomen, however, she is not exactly tender in that area, nor is she tender to her left upper quadrant, and she has no left CVA tenderness. Her pain could be musculoskeletal in etiology, or referred from a pleural effusion. It could also be an unusual presentation of a left sided ureterolith. I think the best way to get to the bottom of it is with a CT scan, therefore I have ordered some blood work and a CT of the abdomen and pelvis with oral and IV contrast. In the meantime, the patient will be treated with IV Dilaudid, IV Zofran, and IV fluid. 02/17/20 07:31 The patient's CBC is unremarkable. Her CMP and magnesium level are still pending. She has not yet gone to CT scan. Case discussed with Dr. Montana, and care of the patient turned over to him at this time, for change of shift. Departure - Departure Disposition: Home, Self-Care 01 Clinical Impression: Pleural effusion in other conditions classified elsewhere, Primary cancer of right breast with metastasis to other site - Discharge Information Prescriptions: dexAMETHasone [Dexamethasone] 4 mg PO ASDIRECTED #15 tablet oxyCODONE HCl/Acetaminophen [Percocet 5-325 mg Tablet] 1 - 2 each PO Q4H PRN #20 tablet PRN Reason: pain relief. Doxycycline [Vibra-Tabs] 100 mg PO Q12HR #20 tab Referrals: Amber Sprague [facility] [Primary Care Provider] - Forms: ED Department Discharge Additional Instructions: Evaluation in the emergency room this morning in regards to development of left lateral lower chest pain last evening. This has a very strong sharp stabbing pleuritic component to it by history documented by Dr. Sanders. Known to have primary right sided breast cancer with metastatic disease. CT scan of the abdomen pelvis was performed and reveals 2 lesions within the right lobe of the liver which appear to be unchanged from previous CTs in size. There is some evidence of sclerosis or possible metastatic disease involving the lower lumbar spine and left pelvis. The chest reveals there is a loculated pleural effusion which is a collection of fluid within the lower left lung field which is probably causing her current pain syndrome. The concern is development of pain associated with the effusion usually means that it is becoming infected or invading the pleura which is the lung lining which has all the nerve endings in it. Treatment was started in the emergency room with Solu-Medrol 125 mg IV and Toradol 30 mg IV. Treatment at home will be antibiotic doxycycline 100mg twice daily for the next 10 days to prevent infection in the if loculated pleural effusion. Continue to use Motrin 600 mg every 6 hours as needed to relieve pain and inflammation. You will need to continue steroids i.e. dexamethasone 4 mg twice daily usually with breakfast and supper for the next 5 days and then once in the morning only for another 5 days to take away pain and inflammation. Pain medicine is Percocet tabs 5/325 mg strength 1 or 2 every 4-6 hours necessary for pain relief. Continue Zofran 4 mg under the tongue every 4-6 hours necessary for relief of nausea or vomiting. Follow-up with primary care physician or oncologist as planned or if any further problems develop. Sepsis Event Note (ED) - Evaluation Sepsis Screening Result: No Definite Risk <Car Montana - Last Filed: 02/17/20 15:03> Course - Vital Signs Last Recorded V/S: Last Vital Signs Temp 36.8 C 02/17/20 11:53 Pulse 88 02/17/20 11:53 Resp 15 02/17/20 11:53 BP 120/90 02/17/20 11:53 Pulse Ox 100 02/17/20 11:53 - Orders/Labs/Meds Labs: Laboratory Tests 02/17/20 02/17/20 Range/Units 06:45 06:45 WBC 6.76 (3.98-10.04) K/mm3 RBC 4.50 (3.98-5.22) M/mm3 Hgb 13.6 (11.2-15.7) gm/dl Hct 40.9 (34.1-44.9) % MCV 90.9 (79.4-94.8) fl MCH 30.2 (25.6-32.2) pg MCHC 33.3 (32.2-35.5) g/dl RDW Std Deviation 44.1 (36.4-46.3) fL Plt Count 246 D (182-369) K/mm3 MPV 8.7 L (9.4-12.3) fl Neutrophils % (Manual) 38 L (40-60) % Band Neutrophils % 0 (0-10) % Lymphocytes % (Manual) 39 (20-40) % Atypical Lymphs % 0 % Monocytes % (Manual) 5 (2-10) % Eosinophils % (Manual) 18 H (0.7-5.8) % Basophils % (Manual) 0 L (0.1-1.2) Platelet Estimate Adequate RBC Morph Comment Normal Sodium 139 (136-145) mEq/L Potassium 4.3 (3.5-5.1) mEq/L Chloride 103 (98-107) mEq/L Carbon Dioxide 28 (21-32) mEq/L Anion Gap 12.3 (5-15) BUN 13 (7-18) mg/dL Creatinine 0.7 (0.55-1.02) mg/dL Est Cr Clr Drug Dosing 94.01 mL/min Estimated GFR (MDRD) > 60 (>60) mL/min BUN/Creatinine Ratio 18.6 H (14-18) Glucose 105 (74-106) mg/dL Calcium 9.3 (8.5-10.1) mg/dL Magnesium 2.0 (1.8-2.4) mg/dl Total Bilirubin 0.4 (0.2-1.0) mg/dL AST 23 (15-37) U/L ALT 35 (14-59) U/L Alkaline Phosphatase 106 (46-116) U/L Total Protein 7.1 (6.4-8.2) g/dl Albumin 3.4 (3.4-5.0) g/dl Globulin 3.7 gm/dL Albumin/Globulin Ratio 0.9 L (1-2) Meds: Medications Discontinued Medications Generic Name Dose Route Start Last Admin Trade Name Freq PRN Reason Stop Dose Admin Diphenhydramine HCl 25 mg 02/17/20 08:20 02/17/20 08:40 Benadryl IVPUSH 02/17/20 08:21 25 mg ONETIME ONE Administration Diphenhydramine HCl Confirm 02/17/20 08:21 02/17/20 08:40 Benadryl Administered 02/17/20 08:22 Not Given Dose 50 mg .ROUTE .STK-MED ONE Heparin Sodium (Porcine) Confirm 02/17/20 10:04 02/17/20 10:13 Heparin Lock Flush 100 Units/Ml Administered 02/17/20 10:05 Not Given Dose 500 units .ROUTE .STK-MED ONE Heparin Sodium (Porcine) 500 units 02/17/20 10:10 02/17/20 10:46 Heparin Lock Flush 100 Units/Ml FLUSH 02/17/20 10:11 500 units ASDIRECTED ONE Administration Hydromorphone HCl 1 mg 02/17/20 05:57 02/17/20 06:31 Dilaudid IVPUSH 02/17/20 05:58 1 mg ONETIME ONE Administration Sodium Chloride 1,000 mls @ 150 mls/hr 02/17/20 06:00 02/17/20 06:30 Normal Saline IV 150 mls/hr ASDIRECTED JEOVANY Administration Iopamidol 100 ml 02/17/20 08:11 02/17/20 08:33 Isovue-300 (61%) IVPUSH 02/17/20 08:12 100 ml ONETIME ONE Administration Ketorolac Tromethamine 30 mg 02/17/20 09:45 02/17/20 09:47 Toradol IVPUSH 30 mg ONETIME JEOVANY Administration Methylprednisolone Sodium Succinate 125 mg 02/17/20 09:41 02/17/20 09:47 Solu-Medrol IVPUSH 02/17/20 09:42 125 mg ONETIME ONE Administration Metoclopramide HCl 10 mg 02/17/20 07:19 02/17/20 07:25 Reglan IVPUSH 02/17/20 07:20 10 mg ONETIME STA Administration Metoclopramide HCl Confirm 02/17/20 07:21 02/17/20 07:25 Reglan Administered 02/17/20 07:22 Not Given Dose 10 mg .ROUTE .STK-MED ONE Ondansetron HCl 4 mg 02/17/20 05:57 02/17/20 06:31 Zofran IVPUSH 02/17/20 05:58 4 mg ONETIME ONE Administration Sodium Chloride 10 ml 02/17/20 08:15 02/17/20 08:34 Saline Flush FLUSH 10 ml BOLUS JEOVANY Administration - Re-Assessments/Exams Free Text/Narrative Re-Assessment/Exam: 02/17/20 08:17 Care of this patient was assumed from Dr. Sanders at change of shift. She is awaiting a CT of the abdomen and pelvis with with IV and oral contrast although she was unable to tolerate oral contrast as it precipitated vomiting. Laboratory work-up is essentially normal other than mild neutropenia hematology reveals a normal white count at 6.76. Differential shows 30% neutrophils and 39% lymphocytes 18% eosinophils. Of note the patient is rece iving chemotherapy. Hemoglobin is 13.6 with hematocrit of 40.9 platelet count is normal at 246,000. Sodium was 139 with a potassium of 4.3. Chloride 103 with a bicarb of 28. Anion gap is 12.3. BUN is 13 with a creatinine of 0.7. GFR is greater than 60. Glucose 105 with a calcium of 9.3. Magnesium is normal at 2.0. Liver function normal total protein 7.1 with an albumin fraction of 3.4. 02/17/20 08:21 nurses report the patient continues to vomit in spite of discontinuing further oral contrast media. Patient initially received 4 mg of Zofran upon arrival in the ED and subsequently has received Reglan 10 mg IV. We will try Benadryl 25 mg IV as there is a significant risk of developing a dystonic reaction with further antinausea medications. Patient has not yet been taken to the CT suite. 02/17/20 09:32; formal radiology CT read available. Findings reveal 2 liver lesions identified within the right lobe largest lesion measures approximately 3.1 cm in size. This is stable from most recent exam. Smaller lesion within the dome of the right lobe measures 1.6 cm in size which is believed to be stable as well. There is slight loculated pleural fluid on the left side which has diminished from previous exam. Spleen appears to be within normal limits. Adrenal glands show no nodules. Pancreas appears normal. Surgical clips noted from prior cholecystectomy. Kidneys show symmetric contrast enhancement without hydronephrosis or mass. Aorta shows no aneurysm. No retroperitoneal adenopathy or mesenteric abnormalities are appreciated. 2 adjacent cysts noted within the right adnexa. One finding measures 3.2 cm in size and has increased from previous exam. Second cyst measures approximate 4.1 cm in size which is felt to be fairly stable. No additional pelvic abnormalities appreciated. Appendix is seen which appears to be normal. Delayed images show contrast excretion into both ureters and bladder no ureteral dilatation is appreciated. Bone window settings were reviewed. Sclerotic area noted with S1 which appears as an interval change from prior study and could possibly represent early metastatic disease. Very small abnormality is seen within L5 which is stable. Lucent lesion is seen within L2 which is stable small sclerotic lesion is noted within L3 which is an interval change from previous exam. Areas of sclerosis are noted within the right hemipelvis and within the right hip which most likely represent additional osseous metastatic disease. Small sclerotic areas noted within the left superior acetabular region measuring about 1 cm which is fairly stable from prior exam. 02/17/20 09:42 I have discussed the above findings with the patient. She still having some pain in the left upper lateral chest which I believe is secondary to loculated pleural effusion in this area. I am going to proceed with giving her Toradol 30 mg IV and Solu-Medrol 125 mg IV. The plan then will be to place her on antibiotic Doxycycline 100mg po BID for the next 10 days in case the loculated pleural effusion is becoming infected since her pain came on abruptly last evening. She also be placed on dexamethasone 4 mg twice daily a.m. and supper for 5 days and once in the morning for another 5 days to reduce inflammation. She will continue use Motrin as needed. Pain pills Percocet 5/325 mg 1 or 2 every 4-6 hours necessary for pain relief. She has Zofran 4 mg sublingual tablets to use at home for nausea relief. She plans on following up with her oncologist in the new year. She is to have a repeat CT of the chest apparently. Her last chemotherapy treatment was in September 2019 Departure - Departure Time of Disposition: 10:31 Condition: Fair - Discharge Information *PRESCRIPTION DRUG MONITORING PROGRAM REVIEWED*: Not Applicable *COPY OF PRESCRIPTION DRUG MONITORING REPORT IN PATIENT [place]YER: Not Applicable Sepsis Event Note (ED) - Focused Exam Vital Signs: Vital Signs Temp Pulse Resp BP Pulse Ox 02/17/20 11:53 36.8 C 88 15 120/90 100 02/17/20 05:24 36.3 C 86 20 126/79 97
[2020-02-17] MEDS ORDERED: Metoclopramide 10 MG/2 ML SDV IVPUSH STA (07:19)
[2020-02-17] MEDS ORDERED: Metoclopramide 10 MG/2 ML SDV ONE (07:21)
[2020-02-17] MEDS ORDERED: Iopamidol 612 MG/ML 100 ML Bottle IVPUSH ONE (08:11)
[2020-02-17] MEDS ORDERED: Sodium Chloride 0.9% 10 ML Syringe FLUSH SCH (08:15)
[2020-02-17] MEDS ORDERED: diphenhydrAMINE 50 MG/ML SDV IVPUSH ONE (08:20)
[2020-02-17] MEDS ORDERED: diphenhydrAMINE 50 MG/ML SDV ONE (08:21)
--- NOTE | 2020-02-17 09:27 | CT ---
CT abdomen and pelvis Technique: Multiple axial sections were obtained from above the dome of the diaphragm inferiorly through the pubic symphysis. Intravenous contrast was utilized. No oral contrast was given. Delayed images were also obtained through the abdomen and pelvis. Comparison: Previous CT chest of 08/05/[address] abdomen and pelvis dated 05/04/19. Findings: Two liver lesions are identified within the right lobe. Largest lesion measures approximately 3.1 cm in size. This is stable from most recent exam. Smaller lesion within the dome of the right lobe measures 1.6 cm in size which is believed to be stable. There is slight loculated pleural fluid on the left side which has diminished from previous exam. Spleen appears within normal limits. Adrenal glands show no nodule. Pancreas appears within normal limits. Surgical clips noted from prior cholecystectomy. Kidneys show symmetric contrast enhancement without hydronephrosis or mass. Aorta shows no aneurysm. No retroperitoneal adenopathy or mesenteric abnormalities are appreciated. Two adjacent cysts noted within the right adnexa. One finding measures 3.2 cm in size and has increased from previous exam. Second cyst measures about 4.1 cm in size which is felt to be fairly stable in size. No additional pelvic abnormality is appreciated. Appendix is seen which is normal in size. Delayed images show contrast excretion into both ureters and bladder. No ureteral dilatation is appreciated. Bone window settings were reviewed. Sclerotic area noted within S1 which appears as an interval change from prior study and could possibly represent early metastatic disease. Very small abnormality is seen within L5 which is stable. Lucent lesion is seen within L2 which is stable. Small sclerotic lesion is noted within L3 which is an interval change from previous exam. Areas of sclerosis are noted within the right hemipelvis and within the right hip which most likely represent additional osseous metastatic disease. Small sclerotic area is noted within the left superior acetabular region measuring about 1 cm which is fairly stable from prior exam. Impression: 1. Two liver lesions which remain stable from most recent exam. 2. Small loculated pleural effusion partially seen within the left base which has decreased from prior study. 3. Two cysts within the right hemipelvis, one cyst has increased in size measuring 3.2 cm and second cyst is stable in size measuring about 4.1 cm. These cysts are non-specific regarding etiology. 4. Areas of sclerosis within the spine as well as pelvis compatible with metastatic osseous disease. Diagnostic code #9
[2020-02-17] MEDS ORDERED: methylPREDNISolone Sodium Succinate 125 MG/2 ML SDV IVPUSH ONE (09:41)
[2020-02-17] MEDS ORDERED: Ketorolac 30 MG/ML SDV IVPUSH SCH (09:45)
== END 2020-02-17 10:45 | disposition home or self-care (01) ==
LOC: JD.ED 05:11
DX: C50.911 Malignant neoplasm of unspecified site of right female breast (principal); C79.89 Secondary malignant neoplasm of other specified sites; J91.8 Pleural effusion in other conditions classified elsewhere; R10.9 Unspecified abdominal pain; E66.9 Obesity, unspecified; Z87.891 Personal history of nicotine dependence
CPT/HCPCS: 36415; 36556; 74177; 80053; 83735; 85007; 85027; 96374; 96375; 99284; J1170; J1200; J1642; J1885; J2405; J2765; J2930; J7030; Q9967

== ENCOUNTER 2020-04-10 13:55 | Inpatient (IN) | payer MEDICAID, SELFPAY ==
[2020-04-10] MEDS ORDERED: Orphenadrine 100 MG Tab.ER PO STA (14:23)
[2020-04-10] MEDS ORDERED: Ketorolac 60 MG/2 ML SDV IM ONE (14:23)
[2020-04-10] MEDS ORDERED: HYDROmorphone 1 MG/ML Syringe IM ONE (14:23)
--- NOTE | 2020-04-10 14:47 | EDM.PDOC ---
ED HPI GENERAL MEDICAL PROBLEM - General Chief Complaint: Back Pain or Injury Stated Complaint: [facility] Time Seen by Provider: 04/10/20 14:14 Source of Information: Reports: Patient History Limitations: Reports: No Limitations - History of Present Illness INITIAL COMMENTS - FREE TEXT/NARRATIVE: 44-year-old female who is brought to the ER by EMS with complaints of low back pain. Patient states she was bending over to picker feeder her keys about 3 days ago when she felt a pop and developed severe low back pain with spasms. Patient states that she did initially come in as she read on the Internet you are supposed to lay on the floor and wait 3 days to be seen to see if the pain goes away. Of note patient has a history of metastatic breast cancer for which she has not receiving treatment. She states she has taken ibuprofen, Aleve, and Percocet without relief of her pain. She denies any pain radiating down her lower extremities. CMS is positive to her lower extremities and she is able to raise both of her legs however the test does cause significant spasm and discomfort to her lower back. Denies urinary or bowel incontinence. 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 History: tubal ligation Psychiatric History: Reports: Anxiety, Depression Endocrine/Metabolic History: Reports: Obesity/BMI 30+ Oncologic (Cancer) History: Reports: Breast - Past Surgical History Respiratory Surgical History: Reports: Pleurodesis GI Surgical History: Reports: Cholecystectomy Female Surgical History: Reports: Tubal Ligation Musculoskeletal Surgical History: Reports: ORIF Oncologic Surgical History: Reports: Biopsy of Breast Social & Family History - Tobacco Use Tobacco Use Status *Q: Never Tobacco User - Caffeine Use Caffeine Use: Reports: None - Living Situation & Occupation Living situation: Reports: , with Family (13 yr old son) Occupation: Unemployed ED ROS GENERAL - Review of Systems Review Of Systems: See Below Constitutional: Reports: No Symptoms HEENT: Reports: No Symptoms Respiratory: Reports: No Symptoms Cardiovascular: Reports: No Symptoms Endocrine: Reports: No Symptoms GI/Abdominal: Reports: No Symptoms Musculoskeletal: Reports: Back Pain (lumbar) Skin: Reports: No Symptoms Neurological: Reports: No Symptoms Psychiatric: Reports: No Symptoms Hematologic/Lymphatic: Reports: No Symptoms Immunologic: Reports: No Symptoms ED EXAM,LOWER BACK PAIN/INJURY - Physical Exam Exam: See Below Exam Limited By: No Limitations General Appearance: Alert, WD/WN, Moderate Distress (due to spasm in low back pain) Eye Exam: Bilateral Eye: PERRL Ears: Normal External Exam, Hearing Grossly Normal Nose: Normal Inspection, Normal Mucosa Throat/Mouth: Normal Inspection, Normal Voice, No Airway Compromise Head: Atraumatic, Normocephalic Neck: Normal Inspection, Supple, Non-Tender, Full Range of Motion Respiratory/Chest: No Respiratory Distress, Lungs Clear, Normal Breath Sounds, No Accessory Muscle Use, Chest Non-Tender Cardiovascular: Normal Peripheral Pulses, Regular Rate, Rhythm, No Edema, No Murmur GI/Abdominal: Normal Bowel Sounds, Soft, Non-Tender, No Distention (Female) Exam: Deferred Rectal (Female) Exam: Deferred Back Exam: Normal Inspection, Muscle Spasm (lumbar), Paraspinal Tenderness (lumbar moderate), Vertebral Tenderness (minor lumbar). No: Full Range of Motion Extremities: Normal Inspection, Normal Range of Motion, Non-Tender, No Pedal Edema, Normal Capillary Refill Neurological: Alert, Normal Mood/Affect, Oriented x 3 Psychiatric: Normal Affect, Normal Mood Skin Exam: Warm, Dry, Intact, Normal Color, No Rash Lymphatic: No Adenopathy Course - Vital Signs Text/Narrative:: 44-year-old female presenting to the ER with severe low back pain and spasm that occurred 3 days ago. Patient was bending over to grab her keys when she felt a pop in her low back and severe low back pain. She states she is unable to ambulate due to the pain or get up on her own. She has been laying on her back for the past 3 days as she read this is supposed to relieve her pain however it has not. Patient is able to raise her right and left leg when lying flat on her back however this does cause her significant spasm and discomfort. Upon assessment patient is unable to sit up with assistance or independently. She is unable to reposition herself in bed without assistance and has severe low back pain when assisted onto her left side. Upon palpation patient has minimal tenderness to her spine however severe paraspinal tenderness in the lumbar region. I have ordered pain medication for this patient as she will not tolerate CT until we get her pain under control. Last Recorded V/S: Last Vital Signs Temp 97.9 F 04/12/20 14:22 Pulse 81 04/12/20 14:22 Resp 16 04/12/20 14:22 BP 132/64 04/12/20 14:22 Pulse Ox 99 04/12/20 14:22 - Orders/Labs/Meds Labs: Laboratory Tests 04/10/20 04/10/20 04/10/20 Range/Units 17:15 17:45 17:45 WBC 8.91 (3.98-10.04) K/mm3 RBC 4.56 (3.98-5.22) M/mm3 Hgb 13.7 (11.2-15.7) gm/dl Hct 41.3 (34.1-44.9) % MCV 90.6 (79.4-94.8) fl MCH 30.0 (25.6-32.2) pg MCHC 33.2 (32.2-35.5) g/dl RDW Std Deviation 44.6 (36.4-46.3) fL Plt Count 277 (182-369) K/mm3 MPV 8.9 L (9.4-12.3) fl Neut % (Auto) 78.8 H (34.0-71.1) % Lymph % (Auto) 16.4 L (19.3-51.7) % [place] % (Auto) 3.3 L (4.7-12.5) % Eos % (Auto) 1.2 (0.7-5.8) Baso % (Auto) 0.2 (0.1-1.2) % Neut # (Auto) 7.02 H (1.56-6.13) K/mm3 Lymph # (Auto) 1.46 (1.18-3.74) K/mm3 [place] # (Auto) 0.29 (0.24-0.36) K/mm3 Eos # (Auto) 0.11 (0.04-0.36) K/mm3 Baso # (Auto) 0.02 (0.01-0.08) K/mm3 ESR 18 (0-20) mm/hr Sodium (136-145) mEq/L Potassium (3.5-5.1) mEq/L Chloride (98-107) mEq/L Carbon Dioxide (21-32) mEq/L Anion Gap (5-15) BUN (7-18) mg/dL Creatinine (0.55-1.02) mg/dL Est Cr Clr Drug Dosing mL/min Estimated GFR (MDRD) (>60) mL/min BUN/Creatinine Ratio (14-18) Glucose (74-106) mg/dL Calcium (8.5-10.1) mg/dL Magnesium (1.8-2.4) mg/dl Total Bilirubin (0.2-1.0) mg/dL AST (15-37) U/L ALT (14-59) U/L Alkaline Phosphatase (46-116) U/L Total Protein (6.4-8.2) g/dl Albumin (3.4-5.0) g/dl Globulin gm/dL Albumin/Globulin Ratio (1-2) SARS-CoV-2 RNA (ELENO) Negative (NEGATIVE) 04/10/20 Range/Units 17:45 WBC (3.98-10.04) K/mm3 RBC (3.98-5.22) M/mm3 Hgb (11.2-15.7) gm/dl Hct (34.1-44.9) % MCV (79.4-94.8) fl MCH (25.6-32.2) pg MCHC (32.2-35.5) g/dl RDW Std Deviation (36.4-46.3) fL Plt Count (182-369) K/mm3 MPV (9.4-12.3) fl Neut % (Auto) (34.0-71.1) % Lymph % (Auto) (19.3-51.7) % [place] % (Auto) (4.7-12.5) % Eos % (Auto) (0.7-5.8) Baso % (Auto) (0.1-1.2) % Neut # (Auto) (1.56-6.13) K/mm3 Lymph # (Auto) (1.18-3.74) K/mm3 [place] # (Auto) (0.24-0.36) K/mm3 Eos # (Auto) (0.04-0.36) K/mm3 Baso # (Auto) (0.01-0.08) K/mm3 ESR (0-20) mm/hr Sodium 140 (136-145) mEq/L Potassium 3.8 (3.5-5.1) mEq/L Chloride 104 (98-107) mEq/L Carbon Dioxide 26 (21-32) mEq/L Anion Gap 13.8 (5-15) BUN 16 (7-18) mg/dL Creatinine 0.7 (0.55-1.02) mg/dL Est Cr Clr Drug Dosing 97.65 mL/min Estimated GFR (MDRD) > 60 (>60) mL/min BUN/Creatinine Ratio 22.9 H (14-18) Glucose 110 H (74-106) mg/dL Calcium 9.2 (8.5-10.1) mg/dL Magnesium 2.1 (1.8-2.4) mg/dl Total Bilirubin 0.5 (0.2-1.0) mg/dL AST 22 (15-37) U/L ALT 37 (14-59) U/L Alkaline Phosphatase 96 (46-116) U/L Total Protein 7.2 (6.4-8.2) g/dl Albumin 3.7 (3.4-5.0) g/dl Globulin 3.5 gm/dL Albumin/Globulin Ratio 1.1 (1-2) SARS-CoV-2 RNA (ELENO) (NEGATIVE) Meds: Medications Discontinued Medications Generic Name Dose Route Start Last Admin Trade Name Freq PRN Reason Stop Dose Admin Albuterol/Ipratropium 3 ml 04/10/20 17:38 Duoneb 3.0-0.5 Mg/3 Ml NEB Q4H PRN Shortness Of Breath/wheezing Cyclobenzaprine HCl 10 mg 04/10/20 21:00 04/12/20 08:24 Flexeril PO 10 mg BID JEOVANY Administration Docusate Sodium 100 mg 04/11/20 09:00 04/12/20 08:24 Colace PO 100 mg DAILY PENDING SALE TO [facility] Administration Enoxaparin Sodium 40 mg 04/11/20 11:30 04/11/20 12:15 Lovenox SUBCUT 04/11/20 11:31 Not Given ONETIME ONE Enoxaparin Sodium 40 mg 04/11/20 21:00 Lovenox SUBCUT Q12H PENDING SALE TO [facility] Enoxaparin Sodium 30 mg 04/11/20 14:00 Lovenox SUBCUT Q24H PENDING SALE TO [facility] Enoxaparin Sodium 40 mg 04/11/20 13:45 04/12/20 13:40 Lovenox SUBCUT Not Given Q24H PENDING SALE TO [facility] Fentanyl 50 mcg 04/10/20 20:00 04/10/20 19:43 Duragesic TRDERM 50 mcg Q72H PENDING SALE TO [facility] Administration Fentanyl 25 mcg 04/12/20 08:00 04/12/20 08:29 Duragesic TRDERM Not Given Q72H PENDING SALE TO [facility] Heparin Sodium (Porcine) 500 units 04/12/20 13:59 04/12/20 14:25 Heparin Lock Flush 100 Units/Ml FLUSH 500 units ASDIRECTED PRN Administration Other Hydromorphone HCl 1 mg 04/10/20 14:23 04/10/20 14:36 Dilaudid IM 04/10/20 14:24 1 mg ONETIME ONE Administration Hydromorphone HCl 0.5 mg 04/10/20 18:04 04/10/20 18:16 Dilaudid IVPUSH 04/10/20 18:05 0.5 mg ONETIME ONE Administration Hydromorphone HCl 2 mg 04/10/20 19:28 Dilaudid IVPUSH Q4H PRN cancer pain Hydromorphone HCl 2 mg 04/10/20 19:37 Dilaudid IVPUSH Q4H PRN cancer pain Promethazine HCl 12.5 mg/ 50.5 mls @ 100 mls/hr 04/10/20 17:38 Sodium Chloride IV Q6H PRN Nausea/Vomiting Ibuprofen 800 mg 04/12/20 14:00 Motrin PO Q8H PRN Pain (moderate 4-6) Ketorolac Tromethamine 60 mg 04/10/20 14:23 04/10/20 14:37 Toradol IM 04/10/20 14:24 60 mg ONETIME ONE Administration Ketorolac Tromethamine 30 mg 04/11/20 13:30 04/12/20 08:24 Toradol IVPUSH 04/15/20 14:00 30 mg Q6H JEOVANY Administration Lorazepam 2 mg 04/10/20 15:27 04/10/20 15:50 Ativan IM 04/10/20 15:28 2 mg ONETIME ONE Administration Methylprednisolone Sodium Succinate 125 mg 04/11/20 13:45 04/12/20 13:33 Solu-Medrol IVPUSH 125 mg Q12H JEOVANY Administration Miscellaneous Information 1 ea 04/13/20 20:00 Remove Patch TRDERM Q72H JEOVANY Miscellaneous Information 0 ea 04/15/20 08:00 Remove Patch TRDERM Q72H JEOVANY Morphine Sulfate 2 mg 04/10/20 17:38 Morphine IVPUSH 04/11/20 17:40 Q2H PRN Pain (severe 7-10) Ondansetron HCl 4 mg 04/10/20 16:28 04/10/20 16:33 Zofran Odt PO 04/10/20 16:29 4 mg ONETIME ONE Administration Ondansetron HCl 4 mg 04/10/20 17:38 04/11/20 18:28 Zofran IV 4 mg Q6H PRN Administration Nausea/Vomiting Orphenadrine Citrate 100 mg 04/10/20 14:23 04/10/20 14:36 Norflex PO 04/10/20 14:24 100 mg NOW STA Administration Oxycodone HCl 10 mg 04/10/20 17:38 Oxycodone PO Q4H PRN Pain (moderate 4-6) Senna/Docusate Sodium 1 tab 04/10/20 17:38 04/11/20 23:12 Senna Plus PO 1 tab BID PRN Administration Constipation Sodium Chloride 10 ml 04/10/20 17:38 Saline Flush FLUSH ASDIRECTED PRN Keep Vein Open Zolpidem Tartrate 5 mg 04/10/20 17:38 Ambien PO BEDTIME PRN Sleep - Radiology Interpretation Free Text/Narrative:: CT of the thoracic spine radiologist impression: 1. Degenerative changes. 2. Nodule within the left lung base which is likely metastatic. 3. No acute abnormality is appreciated on CT study of the thoracic spine CT of the lumbar spine radiologist impression: 1. Findings suspicious for metastatic lesions within the L2 and L3 vertebral bodies as well as within the S1 and right side of the iliac bone. 2. Moderate degenerative changes. 3. Nothing else acute is seen. - Re-Assessments/Exams Free Text/Narrative Re-Assessment/Exam: 04/10/20 16:10 Pt was still having a significant amount of spasm to her low back so I ordered for her to receive ativan IM 04/10/20 17:02 I spoke with the patient regarding the results of her CT scan. She states that she does have an upcoming appointment with her oncologist, Dr. Parada on April 26, and a PET scan as well. He is suspicious for her having mets into the hip. Recommending that she stay in the hospital until we can get her pain under control as I have not been able to in the emergency department. I spoke with Lily Burt regarding admitting the patient for pain control and he has accepted care of the patient. Patient does have a 13-year-old son who is at home with no family to take care of him. I have paged the hospital social science manager to assist with finding care for him while she is hospitalized. 04/10/20 17:37 I have also ordered a CBC, CMP, magnesium, ionized calcium and a sed rate on this patient. Patient also be swabbed for Covid. 04/10/20 17:37 Nursing staff will access the patient's Port-A-Cath for blood draws as patient will also likely be needing pain medication. Departure - Departure Time of Disposition: 19:07 Disposition: Refer to Observation Condition: Poor Clinical Impression: Back pain Qualifiers: Back pain location: low back pain Chronicity: acute Back pain laterality: unspecified Sciatica presence: unspecified whether sciatica present Qualified Code(s): M54.5 - Low back pain - Discharge Information Sepsis Event Note (ED) - Evaluation Sepsis Screening Result: No Definite Risk
[2020-04-10] MEDS ORDERED: LORazepam 2 MG/ML SDV IM ONE (15:27)
[2020-04-10] MEDS ORDERED: Ondansetron 4 MG Tab.DIS PO ONE (16:28)
--- NOTE | 2020-04-10 16:41 | CT ---
CT lumbar spine Technique: Multiple axial sections through the lumbar spine were obtained. Reconstructed coronal and sagittal images were obtained. Findings: L1-2: Posterior disc is preserved. No central canal stenosis or neural foraminal stenosis is seen. L2-3: There is a lucent lesion being seen within the L2 vertebral body which is most likely due to a small metastatic lesion. Posterior disc shows a concave margin. No central canal stenosis or neural foraminal stenosis is seen. L3-4: Slight lucency is noted within the posterior L3 vertebral body. Difficult to exclude a small metastatic lesion. Slight circumferential disc bulge is noted. Moderate degenerative apophyseal change is seen. Mild central canal stenosis is noted. Minimal retrolisthesis is present. Neural foramina are patent where the nerve roots exit. L4-5: Posterior disc shows a planar margin. No central canal stenosis or neural foraminal stenosis is seen. Fairly severe degenerative apophyseal change is noted. L5-S1: Mild spondylolisthesis is seen. Disc space narrowing is noted. Sclerotic area is noted within the L5 and S1 vertebral segments most likely representing metastatic lesions. No central canal stenosis is noted. Neural foramina appear to be slightly compromised where they exit. Additional sclerosis is seen within the right side of the iliac bone presumably representing metastatic lesion. There is no acute fracture being seen. Impression: 1. Findings suspicious for metastatic lesions within the L2 and L3 vertebral bodies as well as within the S1 and right side of the iliac bone. 2. Moderate degenerative change as noted above. 3. Nothing acute is seen. Diagnostic code #9
--- NOTE | 2020-04-10 16:41 | CT ---
CT thoracic spine Technique: Multiple axial sections were obtained through the thoracic spine. Reconstructed coronal and sagittal images were obtained. Findings: Mild disc space narrowing is scattered within the cervical spine. Mild scattered disc space narrowing is noted within the upper thoracic spine. Slight sclerosis is noted within the posterior and superior endplate of T11 which may be degenerative. Slight sclerosis is noted within the endplates at T11-12 which is possibly degenerative. No fracture is appreciated. No abnormal subluxation is seen. Nodular density is partially seen within the left lower lung measuring approximately 2.0 cm which is most likely due to a metastatic nodule. Impression: 1. Degenerative change as noted above. 2. Nodule within the left lung base which is likely metastatic. 3. No acute abnormality is appreciated on CT study of the thoracic spine. Diagnostic code #9
[2020-04-10] MEDS ORDERED: Promethazine 12.5 MG in Sodium Chloride 0.9% 50 ML IV PRN (17:38)
[2020-04-10] MEDS ORDERED: Albuterol/Ipratropium 3.0-0.5 MG/3 ML Neb Soln NEB PRN (17:38)
[2020-04-10] MEDS ORDERED: Morphine 2 MG/ML SYRINGE IVPUSH PRN (17:38)
[2020-04-10] MEDS ORDERED: oxyCODONE 5 MG Tab PO PRN (17:38)
[2020-04-10] MEDS ORDERED: Sodium Chloride 0.9% 10 ML Syringe FLUSH PRN (17:38)
[2020-04-10] MEDS ORDERED: Zolpidem 5 MG Tab PO PRN (17:38)
--- NOTE | 2020-04-10 17:38 | PCM.HP.2 ---
H&P History of Present Illness - General Date of Service: 04/10/20 Admit Problem/Dx: Admission Diagnosis/Problem Admission Diagnosis/Problem Metastatic bone cancer Source of Information: Patient, Provider, RN Notes Reviewed History Limitations: Reports: Physical Impairment - History of Present Illness Initial Comments - Free Text/Narative: This is a 44 yo white female with past medical hx/o Metastatic Breast Cancer currently on chemotherapy, Chronic Nausea, Chronic Back Pain, Anxiety, Depression and Obesity who was brought in by EMS for evaluation of 3 day hx/o acute back pain. She states she bend down to peanut picker her keys when she felt a pop on her back and suddenly developed acute back pain with spasm. She has taken NSAIDS and Narcotics but w/o relief of her symptoms. She denies having numbness or tingling. No urinary or bladder incontinence. She is on Oxycodone at home but developed intolerance to it. She was prescribed with Gabapentin but has not started taking it. She has some movements but with considerable pain hold for excessive sedation. Her initial work up in ED shows Thoracic CT scan noted for nodule within the left lung base and lesions within L2-L3 vertebral bodies as well as within the S1 and right side of the iliac bone suspicious for metastatic disease on Lumbo-Sacral CT scan. Patient received initial treatment in ED but without improvement of her pain. She is coming in primarily for cancer induced pain. 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: , Other (See Below) Other OB/BYN History: tubal ligation Psychiatric History: Reports: Anxiety, Depression Endocrine/Metabolic History: Reports: Obesity/BMI 30+ Oncologic (Cancer) History: Reports: Breast - Past Surgical History Respiratory Surgical History: Reports: Pleurodesis GI Surgical History: Reports: Cholecystectomy Female Surgical History: Reports: Tubal Ligation Musculoskeletal Surgical History: Reports: ORIF Oncologic Surgical History: Reports: Biopsy of Breast Social & Family History - Tobacco Use Tobacco Use Status *Q: Never Tobacco User - Caffeine Use Caffeine Use: Reports: None - Living Situation & Occupation Living situation: Reports: , with Family (13 yr old son) Occupation: Unemployed H&P Review of Systems - Review of Systems: Review Of Systems: See Below General: Reports: Weakness. Denies: Fever, Chills, Fatigue Pulmonary: Denies: Shortness of Breath Cardiovascular: Denies: Chest Pain, Lightheadedness Gastrointestinal: Reports: Nausea. Denies: Abdominal Pain, Vomiting Genitourinary: Denies: Frequency Musculoskeletal: Reports: Back Pain (01/31 at the time I examined her in acute f shine) Skin: Denies: Bruising, Pruritis, Rash Neurological: Reports: Difficulty Walking, Weakness. Denies: Confusion, Numbness, Tingling, Gait Disturbance Hematologic/Lymphatic: Reports: No Symptoms Immunologic: Reports: No Symptoms Exam - Exam Exam: See Below - Vital Signs Vital Signs: Last Vital Signs Temp 36.4 C 04/10/20 14:01 Pulse 86 04/10/20 14:01 Resp 18 04/10/20 14:01 BP 107/70 04/10/20 14:01 Pulse Ox 97 04/10/20 14:01 Weight: 136.078 kg - Exam General: Alert, Oriented, Cooperative, Moderate Distress (but not writhing in pain), Other (Morbidly Obese) HEENT: Conjunctiva Clear, EACs Clear, EOMI, Hearing Intact, Mucosa Moist & [place], Nares Patent, Normal Nasal Septum, Posterior Pharynx Clear, Pupils Equal, Pupils Reactive Neck: Supple, Trachea Midline Lungs: Clear to Auscultation, Normal Respiratory Effort Cardiovascular: Regular Rate, Regular Rhythm GI/Abdominal Exam: Normal Bowel Sounds, Soft, Non-Tender, No Organomegaly, No Distention, No Abnormal Bruit (Female) Exam: Deferred Rectal (Female) Exam: Deferred Back Exam: Other (deferred due to significant pain ) Extremities: Normal Inspection, Normal Range of Motion, Non-Tender, No Pedal Edema, Normal Capillary Refill Peripheral Pulses: 2+: Dorsalis Pedis (L), Dorsalis Pedis (R) Skin: Warm, Dry, Intact Neuro Extensive - Mental Status: Oriented x3, Normal Cognition, Memory Intact Neuro Extensive - Motor, Sensory, Reflexes: CN II-XII Intact (very limited due to pain and discomfort), Abnormal Gait Psychiatric: Alert, Normal Affect, Normal Mood. No: Suicidal Ideation, Wi thdrawal Symptoms - Patient Data Result Diagrams: 04/10/20 17:45 04/10/20 17:45 Sepsis Event Note - Evaluation Sepsis Screening Result: No Definite Risk - Focused Exam Vital Signs: Vital Signs Temp Pulse Resp BP Pulse Ox 04/10/20 14:01 36.4 C 86 18 107/70 97 Problem List Initiated/Reviewed/Updated: Yes Orders Last 24hrs: Active Orders 24 hr Category Date Time Status Admission Status [Patient Status] [ADT] Routine ADT 04/10/20 17:18 Active CBC WITH AUTO DIFF [HEME] Stat Lab 04/10/20 17:17 Ordered COMPREHENSIVE METABOLIC PN,CMP [CHEM] Stat Lab 04/10/20 17:17 Ordered CORONAVIRUS COVID-19 ELENO [MOLEC] Stat Lab 04/10/20 17:15 Received MAGNESIUM [CHEM] Stat Lab 04/10/20 17:17 Ordered SEDIMENTATION RATE AUTO [HEME] Stat Lab 04/10/20 17:17 Ordered Assessment/Plan Comment:: This is a44 yo white female with past medical hx/o Metastatic Breast CA currently on chemotherapy, Chronic Nausea, Chronic Back Pain, Anxiety, Depression and Obesity who was brought in by EMS for evaluation of 3 day hx/o acute back pain. Assessment: Acute: Intractable Back Pain Acute Back Spasm Cancer Induced Pain 2/2 Metastatic Disease Nausea w/o Vomiting Beast Cancer with Metastasis to the lung and the Lumbo-Sacral Spine and Iliac Bone Mild Hyperglycemia with BS of 110 Class III Obese Chronic: Cancer Induced Nausea Cancer Induced Pain Breast Cancer Anxiety Depression Obesity Plan: Admit patient to [facility]. Regular diet. No labs. Refused oxycodone ER due to intolerance. She was prescribed Gabapentin has not started taking it-would not want to start it here either. PRN anti-emetic agents. Resume smooth muscle relaxant. Pain management: Fentanyl 50 mcg Q72H for LA and Dilaudid 2 mg IVP Q2H for break though pain. Stool softener for constipation. Hold parameter on narcotics, sleeping pill, and gabapentin. Resume some home meds once verified. PT/OT to assess back and mobility. SW/CM for d/c planning. DVT/GI prophylaxis. Code status: full. Overall prognosis is grim due to underlying metastatic disease--she is aware.
[2020-04-10] MEDS ORDERED: HYDROmorphone 0.5 MG/0.5 ML Syringe IVPUSH ONE (18:04)
[2020-04-10] MEDS ORDERED: HYDROmorphone 0.5 MG/0.5 ML Syringe IVPUSH PRN (19:28)
[2020-04-10] MEDS: Ondansetron 4 MG/2 ML SDV IV PRN (19:34)
[2020-04-10] MEDS ORDERED: HYDROmorphone 1 MG/ML Syringe IVPUSH PRN (19:37)
[2020-04-10] MEDS ORDERED: fentaNYL 50 MCG/HR Transdermal Patch TRDERM SCH (20:00)
[2020-04-10] MEDS: Cyclobenzaprine 10 MG Tab PO SCH (20:33)
[2020-04-11] MEDS: Cyclobenzaprine 10 MG Tab PO SCH ×2 (08:26→22:15)
[2020-04-11] MEDS: Docusate Sodium 100 MG Cap PO SCH (08:26)
--- NOTE | 2020-04-11 09:55 | PCM.PN ---
- General Info Date of Service: 04/11/20 Subjective Update: Patient has been very drowsy since Fentanyl patch was applied 12 or more hours ago. The patch will be removed. Pain medication will be adjusted. Functional Status: Reports: Other - Review of Systems General: Reports: No Symptoms HEENT: Reports: No Symptoms Pulmonary: Reports: No Symptoms Cardiovascular: Reports: No Symptoms Gastrointestinal: Reports: No Symptoms Genitourinary: Reports: No Symptoms Musculoskeletal: Reports: No Symptoms, Joint Swelling Skin: Reports: No Symptoms Neurological: Reports: No Symptoms Psychiatric: Reports: No Symptoms - Patient Data Vitals - Most Recent: Last Vital Signs Temp 36.4 C 04/11/20 06:09 Pulse 74 04/11/20 06:09 Resp 18 04/11/20 06:09 BP 96/64 04/11/20 06:09 Pulse Ox 99 04/11/20 06:09 Weight - Most Recent: 137.801 kg I&O - Last 24 Hours: Intake & Output 04/10/20 04/11/20 04/11/20 22:59 06:59 14:59 Intake Total 400 Output Total 500 Balance -100 Lab Results Last 24 Hours: Laboratory Results - last 24 hr 04/10/20 04/10/20 04/10/20 Range/Units 17:15 17:45 17:45 WBC 8.91 (3.98-10.04) K/mm3 RBC 4.56 (3.98-5.22) M/mm3 Hgb 13.7 (11.2-15.7) gm/dl Hct 41.3 (34.1-44.9) % MCV 90.6 (79.4-94.8) fl MCH 30.0 (25.6-32.2) pg MCHC 33.2 (32.2-35.5) g/dl RDW Std Deviation 44.6 (36.4-46.3) fL Plt Count 277 (182-369) K/mm3 MPV 8.9 L (9.4-12.3) fl Neut % (Auto) 78.8 H (34.0-71.1) % Lymph % (Auto) 16.4 L (19.3-51.7) % [place] % (Auto) 3.3 L (4.7-12.5) % Eos % (Auto) 1.2 (0.7-5.8) Baso % (Auto) 0.2 (0.1-1.2) % Neut # (Auto) 7.02 H (1.56-6.13) K/mm3 Lymph # (Auto) 1.46 (1.18-3.74) K/mm3 [place] # (Auto) 0.29 (0.24-0.36) K/mm3 Eos # (Auto) 0.11 (0.04-0.36) K/mm3 Baso # (Auto) 0.02 (0.01-0.08) K/mm3 ESR 18 (0-20) mm/hr Sodium (136-145) mEq/L Potassium (3.5-5.1) mEq/L Chloride (98-107) mEq/L Carbon Dioxide (21-32) mEq/L Anion Gap (5-15) BUN (7-18) mg/dL Creatinine (0.55-1.02) mg/dL Est Cr Clr Drug Dosing mL/min Estimated GFR (MDRD) (>60) mL/min BUN/Creatinine Ratio (14-18) Glucose (74-106) mg/dL Calcium (8.5-10.1) mg/dL Magnesium (1.8-2.4) mg/dl Total Bilirubin (0.2-1.0) mg/dL AST (15-37) U/L ALT (14-59) U/L Alkaline Phosphatase (46-116) U/L Total Protein (6.4-8.2) g/dl Albumin (3.4-5.0) g/dl Globulin gm/dL Albumin/Globulin Ratio (1-2) SARS-CoV-2 RNA ([facility]) Negative (NEGATIVE) 04/10/20 Range/Units 17:45 WBC (3.98-10.04) K/mm3 RBC (3.98-5.22) M/mm3 Hgb (11.2-15.7) gm/dl Hct (34.1-44.9) % MCV (79.4-94.8) fl MCH (25.6-32.2) pg MCHC (32.2-35.5) g/dl RDW Std Deviation (36.4-46.3) fL Plt Count (182-369) K/mm3 MPV (9.4-12.3) fl Neut % (Auto) (34.0-71.1) % Lymph % (Auto) (19.3-51.7) % [place] % (Auto) (4.7-12.5) % Eos % (Auto) (0.7-5.8) Baso % (Auto) (0.1-1.2) % Neut # (Auto) (1.56-6.13) K/mm3 Lymph # (Auto) (1.18-3.74) K/mm3 [place] # (Auto) (0.24-0.36) K/mm3 Eos # (Auto) (0.04-0.36) K/mm3 Baso # (Auto) (0.01-0.08) K/mm3 ESR (0-20) mm/hr Sodium 140 (136-145) mEq/L Potassium 3.8 (3.5-5.1) mEq/L Chloride 104 (98-107) mEq/L Carbon Dioxide 26 (21-32) mEq/L Anion Gap 13.8 (5-15) BUN 16 (7-18) mg/dL Creatinine 0.7 (0.55-1.02) mg/dL Est Cr Clr Drug Dosing 97.65 mL/min Estimated GFR (MDRD) > 60 (>60) mL/min BUN/Creatinine Ratio 22.9 H (14-18) Glucose 110 H (74-106) mg/dL Calcium 9.2 (8.5-10.1) mg/dL Magnesium 2.1 (1.8-2.4) mg/dl Total Bilirubin 0.5 (0.2-1.0) mg/dL AST 22 (15-37) U/L ALT 37 (14-59) U/L Alkaline Phosphatase 96 (46-116) U/L Total Protein 7.2 (6.4-8.2) g/dl Albumin 3.7 (3.4-5.0) g/dl Globulin 3.5 gm/dL Albumin/Globulin Ratio 1.1 (1-2) SARS-CoV-2 RNA ([facility]) (NEGATIVE) Med Orders - Current: Current Medications Albuterol/Ipratropium (Duoneb 3.0-0.5 Mg/3 Ml) 3 ml NEB Q4H PRN PRN Reason: Shortness Of Breath/wheezing Cyclobenzaprine HCl (Flexeril) 10 mg PO BID [facility] Last Admin: 04/11/20 08:26 Dose: 10 mg Documented by: Docusate Sodium (Colace) 100 mg PO DAILY [facility] Last Admin: 04/11/20 08:26 Dose: 100 mg Documented by: Fentanyl (Duragesic) 50 mcg TRDERM Q72H [facility] Last Admin: 04/10/20 19:43 Dose: 50 mcg Documented by: Hydromorphone HCl (Dilaudid) 2 mg IVPUSH Q4H PRN PRN Reason: cancer pain Promethazine HCl 12.5 mg/ (Sodium Chloride) 50.5 mls @ 100 mls/hr IV Q6H PRN PRN Reason: Nausea/Vomiting Miscellaneous Information (Remove Patch) 1 ea TRDERM Q72H [facility] Ondansetron HCl (Zofran) 4 mg IV Q6H PRN PRN Reason: Nausea/Vomiting Last Admin: 04/10/20 19:34 Dose: 4 mg Documented by: Senna/Docusate Sodium (Senna Plus) 1 tab PO BID PRN PRN Reason: Constipation Sodium Chloride (Saline Flush) 10 ml FLUSH ASDIRECTED PRN PRN Reason: Keep Vein Open Zolpidem Tartrate (Ambien) 5 mg PO BEDTIME PRN PRN Reason: Sleep Discontinued Medications Hydromorphone HCl (Dilaudid) 1 mg IM ONETIME ONE Stop: 04/10/20 14:24 Last Admin: 04/10/20 14:36 Dose: 1 mg Documented by: Hydromorphone HCl (Dilaudid) 0.5 mg IVPUSH ONETIME ONE Stop: 04/10/20 18:05 Last Admin: 04/10/20 18:16 Dose: 0.5 mg Documented by: Hydromorphone HCl (Dilaudid) 2 mg IVPUSH Q4H PRN PRN Reason: cancer pain Ketorolac Tromethamine (Toradol) 60 mg IM ONETIME ONE Stop: 04/10/20 14:24 Last Admin: 04/10/20 14:37 Dose: 60 mg Documented by: Lorazepam (Ativan) 2 mg IM ONETIME ONE Stop: 04/10/20 15:28 Last Admin: 04/10/20 15:50 Dose: 2 mg Documented by: Morphine Sulfate (Morphine) 2 mg IVPUSH Q2H PRN PRN Reason: Pain (severe 7-10) Stop: 04/11/20 17:40 Ondansetron HCl (Zofran Odt) 4 mg PO ONETIME ONE Stop: 04/10/20 16:29 Last Admin: 04/10/20 16:33 Dose: 4 mg Documented by: Orphenadrine Citrate (Norflex) 100 mg PO NOW STA Stop: 04/10/20 14:24 Last Admin: 04/10/20 14:36 Dose: 100 mg Documented by: Oxycodone HCl (Oxycodone) 10 mg PO Q4H PRN PRN Reason: Pain (moderate 4-6) - Exam Quality Assessment: DVT Prophylaxis General: Other (drowsy) HEENT: Pupils Equal, Pupils Reactive Neck: Trachea Midline, No JVD Lungs: Normal Respiratory Effort Cardiovascular: Regular Rate, Regular Rhythm GI/Abdominal Exam: Normal Bowel Sounds, Soft, Non-Tender (Female) Exam: Deferred Back Exam: Normal Inspection Extremities: Normal Inspection, Normal Capillary Refill Skin: Warm Neurological: No New Focal Deficit Psy/Mental Status: Depressed - Patient Data Result Diagrams: 04/10/20 17:45 04/10/20 17:45 Sepsis Event Note - Evaluation Sepsis Screening Result: No Definite Risk - Focused Exam Vital Signs: Vital Signs Temp Pulse Resp BP Pulse Ox 04/11/20 06:09 36.4 C 74 18 96/64 99 - Problem List Review Problem List Initiated/Reviewed/Updated: Yes - Plan Plan:: This is a44 yo white female with past medical hx/o Metastatic Breast CA currently on chemotherapy, Chronic Nausea, Chronic Back Pain, Anxiety, Depression and Obesity who was brought in by EMS for evaluation of 3 day hx/o acute back pain. 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 Regular diet. No labs. Refused oxycodone ER due to intolerance. She was prescribed Gabapentin has not started taking it-would not want to start it here either. PRN anti-emetic agents. Resume smooth muscle relaxant. Pain management: Fentanyl 50 mcg Q72H for LA and Dilaudid 2 mg IVP Q2H for break though pain. Stool softener for constipation. Hold parameter on narcotics, sleeping pill, and gabapentin. Resume some home meds once verified. PT/OT to assess back and mobility. SW/CM for d/c planning. DVT/GI prophylaxis. Code status: full. Overall prognosis is grim due to underlying metastatic disease--she is aware. Narcotic was adjusted to avoid somnolence, additional medications were added for improved pain management. Pain medications: Toradol, scheduled, 3 days Steroid, scheduled, 2 days Flexeril, unchanged Fentanyl, decreased.
[2020-04-11] MEDS: Enoxaparin 40 MG/0.4 ML Syringe SUBCUT ONE ×2 (12:10→12:15)
[2020-04-11] MEDS: Ondansetron 4 MG/2 ML SDV IV PRN ×2 (12:10→18:28)
[2020-04-11] MEDS ORDERED: Enoxaparin 30 MG/0.3 ML Syringe SUBCUT SCH (14:00)
[2020-04-11] MEDS: Enoxaparin 40 MG/0.4 ML Syringe SUBCUT SCH (14:18)
[2020-04-11] MEDS: Ketorolac 30 MG/ML SDV IVPUSH SCH ×2 (14:36→22:16)
[2020-04-11] MEDS: methylPREDNISolone Sodium Succinate 125 MG/2 ML SDV IVPUSH SCH (14:41)
[2020-04-11] MEDS ORDERED: Enoxaparin 40 MG/0.4 ML Syringe SUBCUT SCH (21:00)
[2020-04-12] MEDS: methylPREDNISolone Sodium Succinate 125 MG/2 ML SDV IVPUSH SCH ×2 (06:33→13:33)
[2020-04-12] MEDS: Ketorolac 30 MG/ML SDV IVPUSH SCH ×2 (06:33→08:24)
[2020-04-12] MEDS ORDERED: fentaNYL 25 MCG/HR Transdermal Patch TRDERM SCH (08:00)
[2020-04-12] MEDS: Docusate Sodium 100 MG Cap PO SCH (08:24)
[2020-04-12] MEDS: Cyclobenzaprine 10 MG Tab PO SCH (08:24)
--- NOTE | 2020-04-12 11:53 | PCM.DCSUM1 ---
Discharge Summary - Hospital Course Free Text/Narrative:: 44 year old patient with reportedly intractable back pain, developed significant drowsiness with Fentanyl 50 mcg q 72 hours. Declined Fentanyl 25 mcg after dose was lowered. Requested Toradol at [place], but can only use it for short term pain management. Thus Motrin 800 mg will be used; also Flexeril 10 mg BID was well tolerated. Anivaltieberlin has follow up appts with PCP and oncologist. HPI Initial Comments: This is a 44 yo white female with past medical hx/o Metastatic Breast Cancer currently on chemotherapy, Chronic Nausea, Chronic Back Pain, Anxiety, Depression and Obesity who was brought in by EMS for evaluation of 3 day hx/o acute back pain. She states she bend down to cotton picker her keys when she felt a pop on her back and suddenly developed acute back pain with spasm. She has taken NSAIDS and Narcotics but w/o relief of her symptoms. She denies having numbness or tingling. No urinary or bladder incontinence. She is on Oxycodone at home but developed intolerance to it. She was prescribed with Gabapentin but has not started taking it. She has some movements but with considerable pain hold for excessive sedation. Her initial work up in ED shows Thoracic CT scan noted for nodule within the left lung base and lesions within L2-L3 vertebral bodies as well as within the S1 and right side of the iliac bone suspicious for metastatic disease on Lumbo-Sacral CT scan. Patient received initial treatment in ED but without improvement of her pain. She is coming in primarily for cancer induced pain. Diagnosis: Stroke: No - Discharge Data Discharge Date: 04/12/20 Discharge Disposition: Home, Self-Care 01 Condition: Good - Referral to Home Health Primary Care Physician: Amber Sprague NP - Patient Summary/Data Consults: Consultations 04/10/20 17:38 Consult to Case Management/Automation Manager [CONS] Routine Consult to Spiritual Care [CONS] Routine OT Evaluation and Treatment [CONS] Routine PT Evaluation and Treatment [CONS] Routine - Patient Instructions Diet: Usual Diet as Tolerated Activity: As Tolerated Driving: Do Not Drive Showering/Bathing: May Shower Notify Provider of: Increased Pain - Discharge Plan *PRESCRIPTION DRUG MONITORING PROGRAM REVIEWED*: Not Applicable *COPY OF PRESCRIPTION DRUG MONITORING REPORT IN PATIENT ROYER: Not Applicable Prescriptions/Med Rec: Cyclobenzaprine [Flexeril] 10 mg PO BID #60 Ibuprofen [Motrin] 800 mg PO Q8H PRN #40 tablet PRN Reason: Pain (Moderate 4-6) Home Medications: Home Meds oxyCODONE HCl/Acetaminophen [Percocet 5-325 mg Tablet] 1 - 2 each PO Q4H PRN #20 tablet 02/17/20 [Rx] Ondansetron [Ondansetron ODT] 4 mg PO Q4H PRN 04/10/20 [History] Cyclobenzaprine [Flexeril] 10 mg PO BID #60 04/12/20 [Rx] Ibuprofen [Motrin] 800 mg PO Q8H PRN #40 tablet 04/12/20 [Rx] Oxygen Therapy Mode: Room Air Patient Handouts: Budget-Friendly Healthy Eating, Healthy Eating Forms: ED Department Discharge Referrals: Amber Sprague NP [Primary Care Provider] - 04/19/20 1:00 pm (come 15 minutes prior to the appointment to register.) Angelito Parada MD [Ordering Only Provider] - 04/26/20 (Please keep your appoint ment with Dr. smiley as previously scheduled ) - Discharge Summary/Plan Comment DC Time >30 min.: No Discharge Summary/Plan Comment: Plan:: This is a44 yo white female with past medical hx/o Metastatic Breast CA currently on chemotherapy, Chronic Nausea, Chronic Back Pain, Anxiety, Depression and Obesity who was brought in by EMS for evaluation of 3 day hx/o acute back pain. 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 Regular diet. No labs. Refused oxycodone ER due to intolerance. She was prescribed Gabapentin has not started taking it-would not want to start it here either. PRN anti-emetic agents. Resume smooth muscle relaxant. Pain management: Fentanyl 50 mcg Q72H for LA and Dilaudid 2 mg IVP Q2H for break though pain. Stool softener for constipation. Hold parameter on narcotics, sleeping pill, and gabapentin. Resume some home meds once verified. PT/OT to assess back and mobility. SW/CM for d/c planning. DVT/GI prophylaxis. Code status: full. Overall prognosis is grim due to underlying metastatic disease--she is aware. Narcotic was adjusted to avoid somnolence, additional medications were added for improved pain management. Pain medications: Toradol, scheduled, 3 days Steroid, scheduled, 2 days Flexeril, unchanged Fentanyl, decreased. Discharge pain meds are home meds and Motrin 800 mg as well as Flexeril 10 mg, see prescription section. Equipment per patient request, compare to PT/OT assessment. - General Info Date of Service: 04/10/20 Functional Status: Reports: Pain Controlled, Tolerating Diet, Ambulating - Review of Systems General: Reports: No Symptoms HEENT: Reports: No Symptoms Pulmonary: Reports: No Symptoms Cardiovascular: Reports: No Symptoms Gastrointestinal: Reports: No Symptoms Genitourinary: Reports: No Symptoms Musculoskeletal: Reports: No Symptoms Skin: Reports: No Symptoms Neurological: Reports: No Symptoms Psychiatric: Reports: No Symptoms - Patient Data Vitals - Most Recent: Last Vital Signs Temp 36.5 C 04/12/20 08:43 Pulse 95 04/12/20 08:43 Resp 16 04/12/20 08:43 BP 135/68 04/12/20 08:43 Pulse Ox 97 04/12/20 08:43 Weight - Most Recent: 135.942 kg I&O - Last 24 hours: Intake & Output 04/11/20 04/12/20 04/12/20 22:59 06:59 14:59 Intake Total 660 950 120 Output Total 500 Balance 160 950 120 Med Orders - Current: Current Medications Albuterol/Ipratropium (Duoneb 3.0-0.5 Mg/3 Ml) 3 ml NEB Q4H PRN PRN Reason: Shortness Of Breath/wheezing Cyclobenzaprine HCl (Flexeril) 10 mg PO BID [facility] Last Admin: 04/12/20 08:24 Dose: 10 mg Documented by: Docusate Sodium (Colace) 100 mg PO DAILY [facility] Last Admin: 04/12/20 08:24 Dose: 100 mg Documented by: Enoxaparin Sodium (Lovenox) 40 mg SUBCUT Q24H [facility] Last Admin: 04/11/20 14:18 Dose: Not Given Documented by: Fentanyl (Duragesic) 25 mcg TRDERM Q72H [facility] Last Admin: 04/12/20 08:29 Dose: Not Given Documented by: Hydromorphone HCl (Dilaudid) 2 mg IVPUSH Q4H PRN PRN Reason: cancer pain Ketorolac Tromethamine (Toradol) 30 mg IVPUSH Q6H [facility] Stop: 04/15/20 14:00 Last Admin: 04/12/20 08:24 Dose: 30 mg Documented by: Methylprednisolone Sodium Succinate (Solu-Medrol) 125 mg IVPUSH Q12H [facility] Last Admin: 04/12/20 06:33 Dose: Not Given Documented by: Miscellaneous Information (Remove Patch) 0 ea TRDERM Q72H [facility] Ondansetron HCl (Zofran) 4 mg IV Q6H PRN PRN Reason: Nausea/Vomiting Last Admin: 04/11/20 18:28 Dose: 4 mg Documented by: Senna/Docusate Sodium (Senna Plus) 1 tab PO BID PRN PRN Reason: Constipation Last Admin: 04/11/20 23:12 Dose: 1 tab Documented by: Sodium Chloride (Saline Flush) 10 ml FLUSH ASDIRECTED PRN PRN Reason: Keep Vein Open Zolpidem Tartrate (Ambien) 5 mg PO BEDTIME PRN PRN Reason: Sleep Discontinued Medications Enoxaparin Sodium (Lovenox) 40 mg SUBCUT ONETIME ONE Stop: 04/11/20 11:31 Last Admin: 04/11/20 12:15 Dose: Not Given Documented by: Enoxaparin Sodium (Lovenox) 40 mg SUBCUT Q12H [facility] Enoxaparin Sodium (Lovenox) 30 mg SUBCUT Q24H [facility] Fentanyl (Duragesic) 50 mcg TRDERM Q72H [facility] Last Admin: 04/10/20 19:43 Dose: 50 mcg Documented by: Hydromorphone HCl (Dilaudid) 1 mg IM ONETIME ONE Stop: 04/10/20 14:24 Last Admin: 04/10/20 14:36 Dose: 1 mg Documented by: Hydromorphone HCl (Dilaudid) 0.5 mg IVPUSH ONETIME ONE Stop: 04/10/20 18:05 Last Admin: 04/10/20 18:16 Dose: 0.5 mg Documented by: Hydromorphone HCl (Dilaudid) 2 mg IVPUSH Q4H PRN PRN Reason: cancer pain Promethazine HCl 12.5 mg/ (Sodium Chloride) 50.5 mls @ 100 mls/hr IV Q6H PRN PRN Reason: Nausea/Vomiting Ketorolac Tromethamine (Toradol) 60 mg IM ONETIME ONE Stop: 04/10/20 14:24 Last Admin: 04/10/20 14:37 Dose: 60 mg Documented by: Lorazepam (Ativan) 2 mg IM ONETIME ONE Stop: 04/10/20 15:28 Last Admin: 04/10/20 15:50 Dose: 2 mg Documented by: Miscellaneous Information (Remove Patch) 1 ea TRDERM Q72H [facility] Morphine Sulfate (Morphine) 2 mg IVPUSH Q2H PRN PRN Reason: Pain (severe 7-10) Stop: 04/11/20 17:40 Ondansetron HCl (Zofran Odt) 4 mg PO ONETIME ONE Stop: 04/10/20 16:29 Last Admin: 04/10/20 16:33 Dose: 4 mg Documented by: Orphenadrine Citrate (Norflex) 100 mg PO NOW STA Stop: 04/10/20 14:24 Last Admin: 04/10/20 14:36 Dose: 100 mg Documented by: Oxycodone HCl (Oxycodone) 10 mg PO Q4H PRN PRN Reason: Pain (moderate 4-6) - Exam Quality Assessment: Reports: DVT Prophylaxis General: Reports: Alert, Oriented, Cooperative, No Acute Distress HEENT: Reports: Pupils Equal, Pupils Reactive, EOMI Neck: Reports: Trachea Midline, No JVD Lungs: Reports: Normal Respiratory Effort Cardiovascular: Reports: Regular Rate, Regular Rhythm GI/Abdominal Exam: Normal Bowel Sounds, Soft, Non-Tender (Female) Exam: Deferred Rectal (Female) Exam: Deferred Back Exam: Reports: Normal Inspection Extremities: Normal Inspection, No Pedal Edema, Normal Capillary Refill Skin: Reports: Warm Neurological: Reports: No New Focal Deficit, Normal Speech Psy/Mental Status: Reports: Alert, Normal Affect, Normal Mood
[2020-04-12] MEDS: Enoxaparin 40 MG/0.4 ML Syringe SUBCUT SCH (13:40)
[2020-04-12] MEDS ORDERED: Ibuprofen 800 MG Tab PO PRN (14:00)
== END 2020-04-12 16:35 | disposition home or self-care (01) | DRG 948 ==
LOC: JD.ED 13:55 → JD.MS 17:18 → INTOOBSV 17:18 → JD.MS 04-11 11:23 → OBSVTOIN 04-11 11:29
PROVIDERS: ADMIT Internal Medicine; ATTEND Internal Medicine
DX: G89.3 Neoplasm related pain (acute) (chronic) (principal); C78.00 Secondary malignant neoplasm of unspecified lung; C79.51 Secondary malignant neoplasm of bone; M54.9 Dorsalgia, unspecified; F32.9 Major depressive disorder, single episode, unspecified; M54.5 Low back pain; F41.9 Anxiety disorder, unspecified; C50.919 Malignant neoplasm of unspecified site of unspecified female breast; R73.9 Hyperglycemia, unspecified; Z79.899 Other long term (current) drug therapy; C79.9 Secondary malignant neoplasm of unspecified site; Z90.49 Acquired absence of other specified parts of digestive tract; Z98.51 Tubal ligation status; K59.00 Constipation, unspecified; E66.9 Obesity, unspecified; M62.830 Muscle spasm of back; R91.1 Solitary pulmonary nodule; R11.0 Nausea; Z20.822 Contact with and (suspected) exposure to COVID-19
CPT/HCPCS: 36415; 36556; 72128; 72131; 80053; 83735; 85025; 85652; 87635; 96372 ×2; 96374; 97162; 99284; A9270 ×6; J1170 ×2; J1885; J2060; J2405; 97110-GP; 97165-GO; 97530-GO; 97535-GO; 99219; 99232; 99238; 99285; J1642; J1650; J2930; U0002

== ENCOUNTER 2020-10-17 16:59 | Emergency (ER) | payer MEDICAID, SELFPAY ==
--- NOTE | 2020-10-17 19:38 | CR ---
Chest: Portable view of the chest was obtained. Comparison: Prior chest x-ray of 08/05/18. Patchy increased density is seen within the left lung base. Left upper lung and right lung are clear. Right-sided infusion port is seen. Heart size and mediastinum are stable. Impression: 1. Increased density within the left lung base. Please correlate if patient has infectious symptoms for this to represent pneumonia. 2. Right-sided infusion port. 3. No additional abnormality is appreciated. Diagnostic code #3
--- NOTE | 2020-10-17 20:04 | EDM.PDOC ---
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 Antonio is a pleasant 45-year-old woman with a past medical history significant for metastatic breast cancer diagnosed in September 2018, status post chemotherapy and radiation therapy, but states that she does not want any further treatment, who now presents the ED for chest pain and dyspnea. The patient states that she saw her PCP on 10/04/2020. She states that she was prescribed a Z-Spencer at that time. She states that she underwent a CT of her chest, although does not recall when that was. She states that she was notified today that the results indicated a pericardial effusion and pleural effusions. She states that she was then prescribed levofloxacin on 10/10/2020, then switched to doxycycline and prednisone. The patient states that she took her first dose of doxycycline this morning, although she has not taken any of the prednisone. She states that after taking the doxycycline, she developed a constricting sensation felt across her entire anterior chest. She states that the sensation lasted about 30 to 60 seconds, but recurred again later after she went and laid down. She is unable to say whether she noticed any modifiers when she had the pain. She read some of the potential side effects of doxycycline and became concerned that the doxycycline could be fatal. Here in the ED tonight, the patient's initial BP is found to be mildly depressed at 134/53, with tachycardia of 110 bpm and tachypnea of 28 rpm. She is afebrile, saturating 93% on room air. She appears to be comfortable, in no acute distress, although she is mildly confused, having difficulty following my line of questioning. The patient reports that she has felt dyspnea on exertion since 09/01/2020. Other than this morning's chest pain, the patient denies having a recent fever, chills, sore throat, ear pain, nasal or sinus congestion, cough, palpitations, nausea, vomiting, constipation, diarrhea, abdominal pain, urinary symptoms, recent weight gain or weight loss, recent bloody bowel movements or black bowel movements, recent joint aches, headaches, or rashes. The patient's PCP is Amber Sprague NP. Her Oncologist is Dr. Angelito Parada. She states that she has not seen him in several months. She has not received a COVID vaccination. Chest Pain Score (Numeric/FACES): 5 - Related Data Allergies Allergy/AdvReac Type Severity Reaction Status Date / Time No Known Allergies Allergy Verified 10/17/20 17:11 Home Meds: Home Meds oxyCODONE HCl/Acetaminophen [Percocet 5-325 mg Tablet] 1 - 2 each PO Q4H PRN #20 tablet 02/17/20 [Rx] Ondansetron [Ondansetron ODT] 4 mg PO Q4H PRN 04/10/20 [History] Cyclobenzaprine [Flexeril] 10 mg PO BID #60 04/12/20 [Rx] Ibuprofen [Motrin] 800 mg PO Q8H PRN #40 tablet 04/12/20 [Rx] Past Medical History Psychiatric History: Reports: Anxiety, Depression Endocrine/Metabolic History: Reports: Obesity/BMI 30+ Oncologic (Cancer) History: Reports: Breast (right, dx'd Sep 2018, s/p CTx, RTx) - Past Surgical History HEENT Surgical History: Reports: Oral Surgery (dental extractions) Cardiovascular Surgical History: Reports: Other (See Below) (Right Port-A-Cath) Respiratory Surgical History: Reports: Pleurodesis (left, talc, Apr 2019) GI Surgical History: Reports: Cholecystectomy (2017) Female Surgical History: Reports: Endometrial Ablation, Tubal Ligation Musculoskeletal Surgical History: Reports: ORIF (right ankle) Other Musculoskeletal Surgeries/Procedures:: Right Ankle - pins and plates there Oncologic Surgical History: Reports: Biopsy of Breast (right) Social & Family History - Tobacco Use Tobacco Use Status *Q: Former Tobacco User Years of Tobacco use: 29 Packs/Tins Daily: 0.3 Month/Year Tobacco Last Used: Quit 2014 Tobacco Use Comment: Started smoking 1985 - Alcohol Use Alcohol Use History: Yes Alcohol Use Frequency: Rarely - Recreational Drug Use Recreational Drug Use: Yes Drug Use in Last 12 Months: Yes Recreational Drug Type: Reports: Marijuana/Hashish (last took edible July 2020), Psilocybin (Mushrooms) (last took around 1995) - Living Situation & Occupation Living situation: Reports: , Alone Occupation: Unemployed ED ROS GENERAL - Review of Systems Review Of Systems: Comprehensive ROS is negative, except as noted in HPI. Respiratory: Reports: Shortness of Breath (on exertion, x 09/01/2020) ED EXAM, GENERAL - Physical Exam Exam: See Below Exam Limited By: No Limitations General Appearance: Alert, WD/WN, No Apparent Distress Eye Exam: Bilateral Eye: EOMI, Normal Inspection Ears: Normal External Exam, Hearing Grossly Normal Nose: Normal Inspection Throat/Mouth: Normal Inspection, Normal Lips, Normal Voice, No Airway Compromise Head: Atraumatic, Normocephalic Neck: Normal Inspection, Full Range of Motion Respiratory/Chest: No Respiratory Distress, No Accessory Muscle Use, Decreased Breath Sounds (entire left lungfield). No: Crackles, Rhonchi, Wheezing, Stridor, Prolonged Expiration Cardiovascular: Normal Peripheral Pulses, Regular Rate, Rhythm, No Gallop, No JVD, No Murmur, No Rub Peripheral Pulses: 3+: Radial (L), Radial (R) GI/Abdominal: Normal Bowel Sounds, Soft, Non-Tender, No Organomegaly, No Dist ention, No Abnormal Bruit, No Mass Back Exam: Normal Inspection, Full Range of Motion, NT Extremities: Normal Inspection, Normal Range of Motion, Normal Capillary Refill Neurological: Alert, Oriented, Normal Gait, No Motor/Sensory Deficits, Confused (unable to say when recent appointments, tests, Rxs were done/given) Psychiatric: Depressed Mood Skin Exam: Warm, Dry, Intact, Normal Color, No Rash Course - Vital Signs Last Recorded V/S: Last Vital Signs Temp 36.1 C 10/17/20 17:08 Pulse 110 H 10/17/20 17:08 Resp 28 H 10/17/20 17:08 BP 134/53 L 10/17/20 17:08 Pulse Ox 93 L 10/17/20 17:08 - Orders/Labs/Meds Orders: Active Orders 24 hr Category Date Time Status Ang Chest [CT] Stat Exams 10/17/20 20:25 Taken Labs: Laboratory Tests 10/17/20 10/17/20 10/17/20 Range/Units 17:27 17:27 17:27 WBC 6.57 (3.98-10.04) K/mm3 RBC 4.56 (3.98-5.22) M/mm3 Hgb 14.1 (11.2-15.7) gm/dl Hct 42.1 (34.1-44.9) % MCV 92.3 (79.4-94.8) fl MCH 30.9 (25.6-32.2) pg MCHC 33.5 (32.2-35.5) g/dl RDW Std Deviation 43.5 (36.4-46.3) fL Plt Count 279 (182-369) K/mm3 MPV 9.6 (9.4-12.3) fl Neut % (Auto) 74.0 H (34.0-71.1) % Lymph % (Auto) 14.5 L (19.3-51.7) % Lane % (Auto) 7.5 (4.7-12.5) % Eos % (Auto) 3.2 (0.7-5.8) Baso % (Auto) 0.3 (0.1-1.2) % Neut # (Auto) 4.87 (1.56-6.13) K/mm3 Lymph # (Auto) 0.95 L (1.18-3.74) K/mm3 Lane # (Auto) 0.49 H (0.24-0.36) K/mm3 Eos # (Auto) 0.21 (0.04-0.36) K/mm3 Baso # (Auto) 0.02 (0.01-0.08) K/mm3 Sodium 140 (136-145) mEq/L Potassium 3.6 (3.5-5.1) mEq/L Chloride 105 (98-107) mEq/L Carbon Dioxide 26 (21-32) mEq/L Anion Gap 12.6 (5-15) BUN 14 (7-18) mg/dL Creatinine 0.6 (0.55-1.02) mg/dL Est Cr Clr Drug Dosing 112.72 mL/min Estimated GFR (MDRD) > 60 (>60) mL/min BUN/Creatinine Ratio 23.3 H (14-18) Glucose 151 H (70-99) mg/dL Calcium 8.3 L (8.5-10.1) mg/dL Total Bilirubin 0.4 (0.2-1.0) mg/dL AST 25 (15-37) U/L ALT 25 (14-59) U/L Alkaline Phosphatase 115 (46-116) U/L NT-Pro-B Natriuret Pep 120 (0-125) pg/mL Total Protein 6.9 (6.4-8.2) g/dl Albumin 3.4 (3.4-5.0) g/dl Globulin 3.5 gm/dL Albumin/Globulin Ratio 1.0 (1-2) Meds: Medications Discontinued Medications Generic Name Dose Route Start Last Admin Trade Name Freq PRN Reason Stop Dose Admin Heparin Sodium (Porcine) 500 units 10/17/20 21:48 10/17/20 22:12 Heparin Sodium 100 Units/Ml 5 Ml Syringe FLUSH 10/17/20 21:49 500 units ASDIRECTED ONE Administration Heparin Sodium (Porcine) 500 units 10/17/20 23:03 10/17/20 23:12 Heparin Sodium 100 Units/Ml 5 Ml Syringe FLUSH 10/17/20 23:04 500 units ASDIRECTED ONE Administration Sodium Chloride 1,000 mls @ 100 mls/hr 10/17/20 20:30 10/17/20 20:51 Normal Saline IV 100 mls/hr ASDIRECTED JEOVANY Administration Sodium Chloride 100 mls @ 60 mls/hr 10/17/20 21:00 10/17/20 21:05 Normal Saline IV 60 mls/hr ASDIRECTED JEOVANY Administration Iopamidol 100 ml 10/17/20 20:47 10/17/20 21:05 Iopamidol 755 Mg/Ml 100 Ml Bottle IVPUSH 10/17/20 20:48 100 ml ONETIME ONE Administration Sodium Chloride 10 ml 10/17/20 21:00 10/17/20 21:06 Sodium Chloride 0.9% 10 Ml Syringe FLUSH 10 ml ASDIRECTED JEOVANY Administration - Re-Assessments/Exams Free Text/Narrative Re-Assessment/Exam: 10/17/20 19:59 As above, the patient has metastatic breast cancer, previously treated with chemotherapy and radiation, but no surgery, and the patient tells me that she does not want to pursue any further treatment. She underwent a left talc pleurodesis in April 2019, but, for reasons not entirely clear, underwent a CT of her chest within the last week or 2. It apparently demonstrated a pericardial effusion and left pleural effusion. She was initially treated with a Z-Spencer, followed by levofloxacin, followed by doxycycline and prednisone, although she states that she only took 1 dose of doxycycline this morning, and did not take any prednisone. After taking the doxycycline this morning, she developed a constricting pain felt across her entire anterior chest. She states that the chest pain lasted only 30 to 60 seconds, but recurred once a short while later. The dyspnea is only on exertion, and has been present since at least 09/01/2020. She denies having any symptoms at this time. Her initial BP is 134/53, with a tachycardia of 110 bpm and tachypnea of 28 rpm. She is afebrile, saturating 93% on room air. On physical exam, she has severely diminished lung sounds across her entire left lung field, otherwise, her physical exam is grossly unremarkable. A CBC, CMP, pro-BNP, and portable chest x-ray were ordered at triage. Her CBC is unremarkable. Her CMP is remarkable for hyperglycemia of 151, and is otherwise unremarkable. Her pro-BNP is within normal limits at 120. Portable chest radiograph is read by Dr. Flores as: 1. Increased density within the left lung base. Please correlate if patient has infectious symptoms for this to represent pneumonia. 2. Right-sided infusion port. 3. No additional abnormality is appreciated. 10/17/20 20:33 Case discussed with Yamil at [facility] at 20:19. Case then discussed with Dr. Lema, Oncologist on-call at the [facility], at 20:20. He recommended that we obtain a CT angiogram of the chest to rule out a PE. He would also like us to get an imaging study of the patient's brain to evaluate for metastases, if possible. Case discussed with the radiation fingernail technician. Unfortunately, it is not possible to obtain a CT of the brain with IV contrast following a CT angiogram of the chest. It would require a second administration of IV contrast, which is not recommended. The above was discussed with the patient. Going forward, we will proceed with the CT angiogram of the chest tonight, then she can undergo an outpatient MRI of the brain as an outpatient. 10/17/20 21:50 CT angiogram of the chest is read by [facility] as: 1. Pneumonia left lower lung. 2. No pulmonary embolism. 3. Spiculated mass right breast. This mass may have been biopsied; correlate clinically. If not, mammographic and ultrasound work-up may be indicated. 4. There is a moderate pericardial effusion. Not present previously. 5. Moderate right and small left pleural effusions which are increased from August 05, 2018. 6. Osteosclerotic bone metastases, not seen on August 05, 2018. 10/17/20 22:38 Test results discussed with the patient. With respect to the CT report of pneumonia left lower lung, I do not feel that the patient has actual pneumonia, as she has has no elevated WBC count or fever, denies having a cough, and has been adequately treated with antibiotics. The infiltrate may take up to 1 month to resolve. That being said, I recommended that she continue taking the doxycycline as previously prescribed. We discussed the option of admitting her to the hospital, however, this hospital is currently under diversion, and admission would require transfer to an outside hospital. The patient does not feel that she needs to be admitted to the hospital. She asked about the cause of her pain, which I suspect is due to the pleural effusions. I believe that both the pleural effusions and the pericardial effusion are malignant. She asked about whether she should be referred to hospice. I recommended that she follow-up with her Oncologist, Dr. Parada, to discuss that versus medical treatment. Departure - Departure Time of Disposition: 22:41 Disposition: Home, Self-Care 01 Condition: Good Clinical Impression: Malignant pleural effusion, Malignant pericardial effusion - Discharge Information *PRESCRIPTION DRUG MONITORING PROGRAM REVIEWED*: Not Applicable *COPY OF PRESCRIPTION DRUG MONITORING REPORT IN PATIENT ROYER: Not Applicable Instructions: Pleural Effusion Referrals: Amber Sprague NP [Primary Care Provider] - Angelito Parada MD [Ordering Only Provider] - Forms: ED Department Discharge Additional Instructions: You were seen in the emergency room after experiencing brief pain felt across her chest this morning, after starting doxycycline, along with some shortness of breath on exertion that you have been experiencing since 09/01/2020. Work-up in the ER included several blood tests, a portable chest x-ray, and a CT angiogram of your chest. Your blood work was grossly unremarkable. You are not anemic. There is no suggestion of an infection. The CT angiogram of your chest found an infiltrate in your lower left lung, which is likely a remnant of earlier pneumonia which has already been treated. No blood clot in your lung was found. Going forward, we recommend that you finish the previously prescribed doxycycline. We recommend that you follow-up with your Oncologist, Dr. Angelito Parada, to discuss treatment options. If any other problems, please do not hesitate to return to the ER. Sepsis Event Note (ED) - Evaluation Sepsis Screening Result: No Definite Risk - Focused Exam Vital Signs: Vital Signs Temp Pulse Resp BP Pulse Ox 10/17/20 17:08 36.1 C 110 H 28 H 134/53 L 93 L - My Orders Last 24 Hours: My Active Orders 10/17/20 20:25 Ang Chest [CT] Stat - Assessment/Plan Last 24 Hours: My Active Orders 10/17/20 20:25 Ang Chest [CT] Stat
[2020-10-17] MEDS ORDERED: Sodium Chloride 0.9% 1,000 ML IV SCH (20:30)
[2020-10-17] MEDS ORDERED: Iopamidol 755 Mg/ML 100 ML Bottle IVPUSH ONE (20:47)
[2020-10-17] MEDS ORDERED: Sodium Chloride 0.9% 10 ML Syringe FLUSH SCH (21:00)
[2020-10-17] MEDS ORDERED: Sodium Chloride 0.9% 100 ML IV SCH (21:00)
--- NOTE | 2020-10-18 09:15 | CT ---
CT chest Technique: Multiple axial sections were obtained were obtained through the chest. Intravenous contrast was utilized. Study has been performed as a pulmonary angiogram protocol. Comparison: Prior chest CT study of 05/04/19. Findings: Pulmonary arteries are well opacified. No filling defects are seen to indicate pulmonary embolism. Thoracic aorta shows no aneurysm. Right-sided infusion port is seen. Moderate right-sided pleural effusion is seen. Minimal left-sided pleural effusion is also noted. Focal parenchymal density is seen within the left base. Difficult to exclude pneumonia. Right breast mass is noted containing a central calcification and measures about 3.1 cm. On prior chest CT study this measured about 2.8 cm. This is highly suspicious for breast carcinoma as previously described. Small pericardial effusion is seen. Low density lesion is noted within the right lobe of the liver which measures about 3.5 cm in size. This finding is noted on prior chest CT exam and may be slightly increased in size. Prior chest CT also showed a small low density lesion more superiorly within the right lobe which is not definitely appreciated on this exam. Previous cholecystectomy is noted. Scattered areas of osteoblastic changes are seen throughout the cervical, thoracic and upper lumbar spine. Findings are highly suspicious for osseous metastatic disease. Several minimal areas of sclerosis are scattered within the ribs also suspicious for possible metastatic disease. These findings are an interval change from prior study. Impression: 1. Moderate right-sided pleural effusion and minimal left-sided pleural effusion. 2. Small pericardial effusion. 3. No findings of pulmonary embolism. 4. Right breast mass increased in size from prior chest CT. 5. Scattered sclerotic areas within the spine as well as several within the ribs compatible with osseous metastatic disease. These are an interval change from prior study. 6. Liver mass which is slightly increased in size. 7. Parenchymal density within the left lung base suspicious for pneumonia. Diagnostic code #9 I agree with preliminary report from [facility], finalized on 10/17/20, 10:45 PM CDT, code 1
== END 2020-10-17 23:22 | disposition home or self-care (01) ==
LOC: JD.ED 16:59
DX: J91.0 Malignant pleural effusion (principal); I31.3 Pericardial effusion (noninflammatory); E66.9 Obesity, unspecified; Z68.30 Body mass index [BMI] 30.0-30.9, adult; Z87.891 Personal history of nicotine dependence
CPT/HCPCS: 36415; 36556; 71045; 71275; 80053; 83880; 85025; 99285; J1642; J7030; Q9967; 99284

== ENCOUNTER 2020-11-09 15:06 | Emergency (ER) | payer MEDICAID ==
[2020-11-09] MEDS ORDERED: HYDROmorphone 1 MG/ML Syringe IM ONE (16:16)
--- NOTE | 2020-11-09 16:22 | EDM.PDOC ---
ED HPI GENERAL MEDICAL PROBLEM - General Chief Complaint: Back Pain or Injury Stated Complaint: BACK PAIN Time Seen by Provider: 11/09/20 15:21 Source of Information: Reports: Patient History Limitations: Reports: No Limitations - History of Present Illness INITIAL COMMENTS - FREE TEXT/NARRATIVE: 45-year-old female presents to the emergency department with complaints of worsening low back pain and abdominal pain. Of note, the patient does have a significant history of breast cancer with metastasis to her lungs, spine and abdomen. She states that her last chemotherapy treatment was in September 2019. She does have a follow-up appointment scheduled with her general surgeon 3 days from now as well as a repeat CT scan. She states that on October 25, 2020 she did have a thoracentesis of her right lung where they removed 1400 mL of fluid. She states she has been managing at home with ibuprofen however the pain in her abdomen and low back has become so severe that the ibuprofen is just not taking care of her pain. She tells me that at one point she was prescribed hydrocodone 11/24/2024's and they made her stomach upset so she has not pursued any other avenues of narcotic pain medication from her physicians. She states her oncologist is Dr. Parada and her general surgeon is Dr. Livingston. She denies any recent fever, chills, nausea, vomiting or diarrhea. She does admit to having some urinary frequency. 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 Lower Back Pain Score (Numeric/FACES): 9 - Related Data Allergies Allergy/AdvReac Type Severity Reaction Status Date / Time No Known Allergies Allergy Verified 11/09/20 15:25 Home Meds: Home Meds Ibuprofen [Motrin] 800 mg PO Q8H PRN #40 tablet 04/12/20 [Rx] Past Medical History Cardiovascular History: Reports: Arrhythmia Respiratory History: Reports: SOB Gastrointestinal History: Reports: GERD [employer] History: Reports: , Other (See Below) Other [employer] DIS[employer] History: tubal ligation Neurological History: Reports: None Psychiatric History: Reports: Anxiety, Depression Endocrine/Metabolic History: Reports: Obesity/BMI 30+ Oncologic (Cancer) History: Reports: Breast Dermatologic History: Reports: Other (See Below) Other Dermatologic History: eczema - Past Surgical History HEENT Surgical History: Reports: Oral Surgery Respiratory Surgical History: Reports: Pleurodesis GI Surgical History: Reports: Cholecystectomy Female Surgical History: Reports: Endometrial Ablation, Tubal Ligation Musculoskeletal Surgical History: Reports: ORIF Other Musculoskeletal Surgeries/Procedures:: Right Ankle - pins and plates there Oncologic Surgical History: Reports: Biopsy of Breast Social & Family History - Tobacco Use Tobacco Use Status *Q: Never Tobacco User Second Hand Smoke Exposure: No - Caffeine Use Caffeine Use: Reports: None - Recreational Drug Use Recreational Drug Use: No - Living Situation & Occupation Living situation: Reports: , Alone Occupation: Unemployed ED ROS GENERAL - Review of Systems Review Of Systems: Comprehensive ROS is negative, except as noted in HPI. ED EXAM, GENERAL - Physical Exam Exam: See Below Exam Limited By: No Limitations General Appearance: Alert, WD/WN, Mild Distress Ears: Normal External Exam, Hearing Grossly Normal Nose: Normal Inspection Throat/Mouth: Normal Inspection, Normal Lips, Normal Voice, No Airway Compromise Head: Atraumatic, Normocephalic Neck: Normal Inspection, Supple Respiratory/Chest: No Respiratory Distress, Lungs Clear, Normal Breath Sounds, No Accessory Muscle Use, Chest Non-Tender Cardiovascular: Normal Peripheral Pulses, Regular Rate, Rhythm, No Edema, No Murmur Peripheral Pulses: 2+: Radial (L), Radial (R) GI/Abdominal: Normal Bowel Sounds, Soft, Non-Tender, No Distention (Female) Exam: Deferred Rectal (Female) Exam: Deferred Back Exam: Normal Inspection Extremities: Normal Inspection Neurological: Alert, Oriented, Normal Cognition Psychiatric: Normal Affect, Flat Affect Skin Exam: Warm, Dry, Intact, Normal Color, No Rash Lymphatic: No Adenopathy Course - Vital Signs Text/Narrative:: Physical exam is essentially unremarkable. The patient is hemodynamically stable. I have ordered for the patient to have a urinalysis with micro and culture if indicated to rule out UTI. We will also give the patient a shot of Dilaudid 1 mg IM to see if we can get her pain under control. Last Recorded V/S: Last Vital Signs Temp 97.3 F 11/09/20 15:20 Pulse 91 11/09/20 15:20 Resp 18 11/09/20 15:20 BP Pulse Ox 94 L 11/09/20 15:20 - Orders/Labs/Meds Labs: Laboratory Tests 11/09/20 Range/Units 17:00 Urine Color Yellow (Yellow) Urine Appearance Clear (Clear) Urine pH 6.0 (5.0-8.0) Ur Specific [place] > or = 1.030 (1.005-1.030) Urine Protein Trace H (Negative) Urine Glucose (UA) Negative (Negative) Urine Ketones Negative (Negative) Urine Occult Blood Negative (Negative) Urine Nitrite Negative (Negative) Urine Bilirubin Negative (Negative) Urine Urobilinogen 0.2 (0.2-1.0) Ur Leukocyte Esterase Negative (Negative) Urine RBC 0-5 (0-5) /hpf Urine WBC 0-5 (0-5) /hpf Ur Epithelial Cells 0-5 (0-5) /hpf Urine Bacteria Moderate H (FEW) /hpf Urine Mucus Many H (FEW) /hpf Meds: Medications Discontinued Medications Generic Name Dose Route Start Last Admin Trade Name Freq PRN Reason Stop Dose Admin Diphenhydramine HCl 25 mg 11/09/20 20:38 11/09/20 21:05 Diphenhydramine 50 Mg/Ml Sdv IM 11/09/20 20:39 Not Given ONETIME ONE Hydromorphone HCl 1 mg 11/09/20 16:16 11/09/20 16:21 Hydromorphone 1 Mg/Ml Syringe IM 11/09/20 16:17 1 mg ONETIME ONE Administration Metoclopramide HCl 5 mg 11/09/20 19:28 11/09/20 19:42 Metoclopramide 5 Mg Tab PO 11/09/20 19:29 5 mg ONETIME ONE Administration Ondansetron HCl 4 mg 11/09/20 17:19 11/09/20 17:24 Ondansetron 4 Mg Tab.Dis PO 11/09/20 17:20 4 mg ONETIME ONE Administration Ondansetron HCl 4 mg 11/09/20 21:59 Ondansetron 4 Mg Tab.Dis PO 11/09/20 22:00 ONETIME ONE - Re-Assessments/Exams Free Text/Narrative Re-Assessment/Exam: 11/09/20 17:33 Urinalysis reveals a trace of protein, moderate urine bacteria, many mucus, leukocyte Estrace is negative, urine WBC 0-5 Nursing staff notifies me that after the patient received her shot of Dilaudid, she did then get up to ambulate to the bathroom to give a urine sample and did have one episode of vomiting. She states she felt better after vomiting however I have ordered for the patient to receive Zofran 4 mg ODT tabs. 11/09/20 18:16 Nursing staff notifies me that the patient has vomited a second time. Patient states that this happens when she receives narcotic pain medication. 11/09/20 19:27 Patient states that she no longer has any pain however she is still very nauseated. We will give her a dose of oral Reglan to treat the nausea and vomi ting. 11/09/20 20:59 Patient still having nausea and vomiting. Discussed the case with Dr. [place] who recommends that I give the patient benadryl. Patient is refusing to take any Benadryl or any more medications. She states she needs to drive home and does not want to take any medications. We will continue to observe her. 11/09/20 21:59 Patient states that she is starting to feel slightly better however still nauseated. We will repeat the dose of Zofran ODT as she states that is what works best for her. And she will be discharged home with a prescription for hydrocodone for pain as well as Zofran ODT for nausea. She will follow-up with her surgeon on Wednesday to have her CT scan and surgery consult. At that time she states she will discuss with her surgeon effective pain management for her cancer pain. Departure - Departure Time of Disposition: 22:01 Disposition: Home, Self-Care 01 Condition: Good Clinical Impression: Back pain Qualifiers: Back pain location: low back pain Chronicity: chronic Back pain laterality: unspecified Sciatica presence: without sciatica Qualified Code(s): M54.5 - Low back pain; G89.29 - Other chronic pain - Discharge Information Instructions: Pain Medicine Instructions, [id number] Referrals: Amber Sprague NP [Primary Care Provider] - Forms: ED Department Discharge Additional Instructions: You were seen in the emergency department with complaints of back pain and abdominal pain due to cancer metastases. Urinalysis was completed which did not show any sign of urinary tract infection. While in the emergency department you received Dilaudid 1 mg intramuscularly. This medication did take your pain away however did cause you to have nausea and vomiting. You did receive 2 doses of Zofran ODT as well as 1 dose of Reglan for the nausea and vomiting. I have given you a prescription to fill for hydrocodone 5-325 for pain. You may take 1 tab every 4 hours as needed for pain. I have also given you a prescription for Zofran ODT you may take 1 tab every 6 hours as needed for nausea and vomiting. Follow-up with your surgeon on Wednesday as scheduled for evaluation as well as CT scan. Should your condition worsen or change, do not hesitate returning to the emergency department. Sepsis Event Note (ED) - Evaluation Sepsis Screening Result: No Definite Risk - Focused Exam Vital Signs: Vital Signs Temp Pulse Resp Pulse Ox 11/09/20 15:20 97.3 F 91 18 94 L
[2020-11-09] MEDS ORDERED: Ondansetron 4 MG Tab.DIS PO ONE ×2 (17:19→21:59)
[2020-11-09] MEDS ORDERED: Metoclopramide 5 MG Tab PO ONE (19:28)
[2020-11-09] MEDS ORDERED: diphenhydrAMINE 50 MG/ML SDV IM ONE (20:38)
== END 2020-11-09 22:21 | disposition home or self-care (01) ==
LOC: JD.ED 15:06
DX: G89.29 Other chronic pain (principal); M54.5 Low back pain; E66.9 Obesity, unspecified; Z68.41 Body mass index [BMI] 40.0-44.9, adult
CPT/HCPCS: 81001; 96372; 99284; A9270; J1170